=== PATIENT | female | born 1950 | race Two or more races ===

== ENCOUNTER 2017-11-09 21:53 | Emergency (ER) | payer MEDICARE, MEDICAID ==
[2017-11-09] MEDS ORDERED: HYDROCODONE/ACETAMINOPHEN 5-325 MG TABLET PO ONE (22:56)
--- NOTE | 2017-11-09 22:57 | ER Document Report ---
ED General - General Chief Complaint: Chest Pain Stated Complaint: CHEST PAIN Time Seen by Provider: 11/09/17 22:50 Notes: Patient is a 67-year-old female comes emergency department for chief complaint of 2 days of worsening congestion, cough, and she states she is starting to get soreness around the sides of her ribs when she coughs. She states she felt like she had a fever earlier but she is not sure. She denies vomiting, shortness of breath, dizziness. She takes metformin and glipizide for diabetes , she denies any other medical history. She is a former smoker, denies asthma or COPD, denies frequent bronchitis or lung infections. She denies any cardiovascular history. TRAVEL OUTSIDE OF THE [place] IN LAST 30 DAYS: No - Related Data Allergies/Adverse Reactions: aspirin [Aspirin] Adverse Reaction (Verified 05/19/15 16:46) Past Medical History - General Information source: Patient - Social History Smoking Status: Former Smoker Frequency of alcohol use: None Drug Abuse: None Lives with: Family Family History: Reviewed & Not Pertinent - Past Medical History Cardiac Medical History: Reports: Hx Hypercholesterolemia Denies: Hx Coronary Artery Disease, Hx Heart Attack, Hx Hypertension Pulmonary Medical History: Reports: Hx Bronchitis Denies: Hx Asthma, Hx COPD, Hx Pneumonia, Hx Tuberculosis Neurological Medical History: Denies: Hx Cerebrovascular Accident, Hx Seizures Endocrine Medical History: Reports: Hx Diabetes Mellitus Type 2 GI Medical History: Reports: Hx Gastroesophageal Reflux Disease, Hx Ulcer Musculoskeltal Medical History: Reports Hx Arthritis Psychiatric Medical History: Reports: Hx Depression Past Surgical History: Reports: Hx Section, Hx Tonsillectomy, Hx Tubal Ligation. Denies: Hx Hysterectomy, Hx Pacemaker - Immunizations Hx Diphtheria, Pertussis, Tetanus Vaccination: Yes - UTD Hx Pneumococcal Vaccination: 07/21/14 Review of Systems - Review of Systems Constitutional: No symptoms reported EENT: No symptoms reported Cardiovascular: No symptoms reported Respiratory: See HPI Gastrointestinal: No symptoms reported Genitourinary: No symptoms reported Female Genitourinary: No symptoms reported Musculoskeletal: See HPI Skin: No symptoms reported Hematologic/Lymphatic: No symptoms reported Neurological/Psychological: No symptoms reported Physical Exam - Vital signs Vitals: Temp Pulse Resp BP Pulse Ox 98.5 F 98 18 153/77 H 98 11/09/17 22:06 11/09/17 22:06 11/09/17 22:06 11/09/17 22:06 11/09/17 22:06 Interpretation: Normal - General General appearance: Alert, Other - Patient with frequent painful looking coughing episodes - HEENT Head: Normocephalic, Atraumatic Eyes: Normal Conjunctiva: Normal Extraocular movements intact: Yes Eyelashes: Normal Pupils: PERRL Mouth/Lips: Normal Mucous membranes: Normal Pharynx: Normal Neck: Normal - Respiratory Respiratory status: No: Respiratory distress, Labored, Tachypnea Chest status: Tender - Mild tenderness generally over the anterior and posterior ribs Breath sounds: Nonproductive cough. No: Decreased air movement, Rales, Rhonchi , Stridor, Wheezing Chest palpation: Normal - Cardiovascular Rhythm: Regular. No: Tachycardia Heart sounds: Normal auscultation, S1 appreciated, S2 appreciated Murmur: No - Abdominal Inspection: Normal Distension: No distension Bowel sounds: Normal Tenderness: Nontender Organomegaly: No organomegaly - Back Back: Normal, Nontender - Extremities General upper extremity: Normal inspection, Nontender, Normal color, Normal ROM , Normal temperature General lower extremity: Normal inspection, Nontender, Normal color, Normal ROM , Normal temperature, Normal weight bearing. No: Moustapha's sign - Neurological Neuro grossly intact: Yes Cognition: Normal Orientation: AAOx4 [place] Coma Scale Eye Opening: Spontaneous [place] Coma Scale Verbal: Oriented [place] Coma Scale Motor: Obeys Commands [place] Coma Scale Total: 15 Speech: Normal Motor strength normal: LUE, RUE, LLE, RLE Sensory: Normal - Psychological Associated symptoms: Normal affect, Normal mood - Skin Skin Temperature: Warm Skin Moisture: Dry Skin Color: Normal Course - Re-evaluation Re-evalutation: Patient with a nearly nonstop painful cough on my examination. A few coarse breath sounds but otherwise clear lung auscultation with no wheezing, rhonchi, or rales. Patient is able to speak between coughing episodes in full sentences , she does not have tachypnea, no hypoxia, no tachycardia or hypotension. No fever. Chest x-ray unremarkable. Patient given a [place] tablet because of her symptoms. On reevaluation she has stopped coughing, she is resting, she expresses gratefulness. She has sinus tenderness, congestion, cough. Patient will be treated for sinusitis and covered for pneumonia with doxycycline, I did provide her with some symptom management, discussed these in detail, discussed follow-up, discussed return precautions in detail. Patient stating she is ready to go home, states understanding and agreement. - Vital Signs Vital signs: Temp Pulse Resp BP Pulse Ox 98.5 F 88 18 147/75 H 95 11/09/17 22:06 11/10/17 01:18 11/10/17 01:18 11/10/17 01:18 11/10/17 01:18 Discharge - Discharge Clinical Impression: Cough, Rib pain Sinusitis Qualifiers: Sinusitis location: unspecified location Chronicity: acute Recurrence: not specified as recurrent Qualified Code(s): J01.90 - Acute sinusitis, unspecified Condition: Stable Disposition: HOME, SELF-CARE Additional Instructions: Your chest x-ray does not show any concerning abnormalities. Your examination is consistent with sinusitis and bronchitis. Take the antibiotic as prescribed , take [id number] remedies, only take the pain medication given if needed for cough and sleep. If you do take it also take the Colace to avoid constipation. Follow-up with your primary care provider. Return for any concerning or worsening symptoms including spiking fever, difficulty breathing, or any other concerning symptoms. Prescriptions: Docusate Sodium [Colace 100 mg Capsule] 100 mg PO ASDIR PRN #30 capsule PRN Reason: Doxycycline Hyclate 100 mg PO BID #14 capsule Hydrocodone/Acetaminophen [[place] 5-325 mg Tablet] 1 tab PO ASDIR #6 tablet Referrals: ROHAN ROPER PA-C [Primary Care Provider] - Follow up as needed
--- NOTE | 2017-11-10 01:00 | RADIOLOGY REPORT (SQ) ---
EXAM DESCRIPTION: CHEST PA/LAT CLINICAL HISTORY: 67 years, Female, persistent cough COMPARISON: 8.19.15 LIMITATIONS: None. FINDINGS: Prominent interstitium, normal cardiac silhouette, and intact bony thorax. IMPRESSION: No acute cardiopulmonary findings. 2011 [employer]- All Rights Reserved
[2017-11-10] MEDS ORDERED: HYDROCODONE/ACETAMINOPHEN 5-325 MG 6 TAB/DSPK PO PRN (01:04)
[2017-11-10] MEDS ORDERED: DOXYCYCLINE HYCLATE 100 MG TABLET PO ONE (01:04)
[2017-11-10 01:19] VITALS: BP 147/75
--- NOTE | 2017-11-10 07:51 | EKG REPORT ---
SEVERITY:- NORMAL ECG - SINUS RHYTHM : Confirmed by: Sherman Jane MD 10-Nov-2017 07:51:01
== END 2017-11-10 01:18 | disposition home or self-care (01) ==
LOC: ER 21:53
DX: R07.81 Pleurodynia (principal); R05 Cough; J01.90 Acute sinusitis, unspecified; E11.9 Type 2 diabetes mellitus without complications; Z79.84 Long term (current) use of oral hypoglycemic drugs; Z87.891 Personal history of nicotine dependence
CPT/HCPCS: 93005; 99285; 71020; 93010; A9270 ×3

== ENCOUNTER 2019-02-17 13:13 | Inpatient (IN) | payer MEDICARE, MEDICAID ==
--- NOTE | 2019-02-17 13:34 | ER Document Report ---
ED Medical Screen (RME) - General Chief Complaint: Dizziness Stated Complaint: DIZZY Time Seen by Provider: 02/17/19 13:33 Primary Care Provider: ROHAN ROPER PA-C [Primary Care Provider] - Follow up as needed Mode of Arrival: Wheelchair Information source: Patient, Relative TRAVEL OUTSIDE OF THE [place] IN LAST 30 DAYS: No - HPI Patient complains to provider of: dizzy, shaking Onset: Yesterday - pt with 1 day h/o dizziness, shaking and weakness. Denies CP - Related Data Allergies/Adverse Reactions: aspirin [Aspirin] Adverse Reaction (Verified 05/19/15 16:46) Past Medical History - Past Medical History Cardiac Medical History: Reports: Hx Hypercholesterolemia Denies: Hx Coronary Artery Disease, Hx Heart Attack, Hx Hypertension Pulmonary Medical History: Reports: Hx Bronchitis Denies: Hx Asthma, Hx COPD, Hx Pneumonia, Hx Tuberculosis Neurological Medical History: Denies: Hx Cerebrovascular Accident, Hx Seizures Endocrine Medical History: Reports: Hx Diabetes Mellitus Type 2 Renal/ Medical History: Denies: Hx Peritoneal Dialysis GI Medical History: Reports: Hx Gastroesophageal Reflux Disease, Hx Ulcer Musculoskeltal Medical History: Reports Hx Arthritis Psychiatric Medical History: Reports: Hx Depression Past Surgical History: Reports: Hx Section, Hx Tonsillectomy, Hx Tubal Ligation. Denies: Hx Hysterectomy, Hx Pacemaker - Immunizations Hx Diphtheria, Pertussis, Tetanus Vaccination: Yes - UTD Physical Exam - Vital signs Vitals: Temp Pulse Resp BP Pulse Ox 97.4 F 117 H 16 117/55 L 98 02/17/19 13:20 02/17/19 13:20 02/17/19 13:20 02/17/19 13:20 02/17/19 13:20 Course - Vital Signs Vital signs: Temp Pulse Resp BP Pulse Ox 97.4 F 117 H 16 117/55 L 98 02/17/19 13:20 02/17/19 13:20 02/17/19 13:20 02/17/19 13:20 02/17/19 13:20 Doctor's Discharge - Discharge Referrals: ROHAN ROPER PA-C [Primary Care Provider] - Follow up as needed
[2019-02-17 14:32] LABS: APPEARANCE,URINE SLIGHTLY-CLOUDY; BILIRUBIN,URINE NEGATIVE (NEGATIVE); COLOR,URINE YELLOW; GLUCOSE, URINE >=500 mg/dL (NEGATIVE); KETONES,URINE NEGATIVE (NEGATIVE); LEUKOCYTE ESTERASE,URINE NEGATIVE (NEGATIVE); NITRITE,URINE NEGATIVE (NEGATIVE); PROTEIN,URINE NEGATIVE (NEGATIVE); UROBILINOGEN,URINE NEGATIVE mg/dL (<2.0)
[2019-02-17 14:37] LABS: ABSOLUTE BASOPHILS # (AUTO) 0.1 10^3/uL (0.0-0.2); ABSOLUTE EOSINOPHILS # (AUTO) 0.1 10^3/uL (0.0-0.6); ABSOLUTE LYMPHOCYTES (AUTO) 2.5 10^3/uL (0.5-4.7); ABSOLUTE MONOCYTES (AUTO) 0.5 10^3/uL (0.1-1.4); ABSOLUTE NEUT (AUTO) 5.5 10^3/uL (1.7-8.2); EOSINOPHILS % (AUTO) 0.6 % (0-6); HEMATOCRIT 20.8 % (36.0-47.0); MEAN CORPUSCULAR HEMOGLOBIN 30.6 pg (27.0-33.4); MEAN CORPUSCULAR HGB CONC 33.8 g/dL (32.0-36.0); MEAN CORPUSCULAR VOLUME 91 fl (80-97); MONOCYTES % (AUTO) 5.4 % (3-13); PLATELET COUNT 317 10^3/uL (150-450); RED BLOOD COUNT 2.29 10^6/uL (3.72-5.28); RED CELL DISTRIBUTION WIDTH 12.8 % (11.5-14.0); TOTAL CELLS COUNTED % (AUTO) 100 %; WHITE BLOOD COUNT 8.6 10^3/uL (4.0-10.5)
[2019-02-17 14:42] LABS: ALANINE AMINOTRANSFERASE 28 U/L (9-52); ALBUMIN 3.5 g/dL (3.5-5.0); ALKALINE PHOSPHATASE 67 U/L (38-126); ANION GAP 11 (5-19); ASPARTATE AMINO TRANSFERASE 27 U/L (14-36); BILIRUBIN,DIRECT 0.2 mg/dL (0.0-0.4); BILIRUBIN,TOTAL 0.2 mg/dL (0.2-1.3); BLOOD UREA NITROGEN 34 mg/dL (7-20); CALCIUM 9.5 mg/dL (8.4-10.2); CARBON DIOXIDE 25 mmol/L (22-30); CHLORIDE 102 mmol/L (98-107); CREATINE KINASE 59 U/L (30-135); GLUCOSE 250 mg/dL (75-110); POTASSIUM 4.3 mmol/L (3.6-5.0); SODIUM 137.6 mmol/L (137-145); TOTAL PROTEIN 6.2 g/dL (6.3-8.2)
[2019-02-17 14:53] LABS: CREATINE KINASE MB 0.65 ng/mL (<4.55)
[2019-02-17 14:56] LABS: TROPONIN I < 0.012 ng/mL
[2019-02-17] MEDS ORDERED: NORMAL SALINE 250 ML IV PRN (16:36)
[2019-02-17] MEDS ORDERED: PANTOPRAZOLE SODIUM 40 MG VIAL IV ONE (16:52)
[2019-02-17] MEDS ORDERED: PANTOPRAZOLE SODIUM 40 MG VIAL IV PRN (16:52)
[2019-02-17 17:04] LABS: INTERNATIONAL RATION (INR) 0.91; PROTHROMBIN TIME 12.7 SEC (11.4-15.4)
[2019-02-17 17:05] LABS: PARTIAL THROMBOPLASTIN TIME 25.4 SEC (23.5-35.8)
--- NOTE | 2019-02-17 17:31 | ER Document Report ---
Entered by ARVIND DIEGO SCRIBE 02/17/19 [id number] Acting as scribe for:JM BELLO DO ED General - General Chief Complaint: Dizziness Stated Complaint: DIZZY Time Seen by Provider: 02/17/19 13:33 Mode of Arrival: Wheelchair Information source: Patient Notes: 68-year-old female who presents to the emergency department today with complaints of being awoken from sleep this morning with her "heart racing and pounding heart". Patient states she felt like her "heart was going to come out of her ear. Patient states that she had associated shakiness, dizziness, and ge neralized weakness during this. Patient states her symptoms somewhat subsided so she dropped her grandson off at work and then went to pentecostalism. Patient reports that at pentecostalism her symptoms began again so she called her daughter to come pick her up and bring her here to be evaluated. Patient does mention that noticed black stool today. Patient states that she did take x6 ibuprofen two days ago for lower back pain. Patient denies any vision changes, chest pain, shortness of breath, abdominal pain, nausea, vomiting, or diarrhea. TRAVEL OUTSIDE OF THE [place] IN LAST 30 DAYS: No - Related Data Allergies/Adverse Reactions: aspirin [Aspirin] Adverse Reaction (Verified 05/19/15 16:46) Past Medical History - General Information source: Patient, Relative - Social History Smoking Status: Former Smoker Cigarette use (# per day): No Frequency of alcohol use: None Drug Abuse: None Lives with: Family Family History: Reviewed & Not Pertinent Patient has suicidal ideation: No Patient has homicidal ideation: No - Past Medical History Cardiac Medical History: Reports: Hx Hypercholesterolemia Pulmonary Medical History: Reports: Hx Bronchitis Endocrine Medical History: Reports: Hx Diabetes Mellitus Type 2 GI Medical History: Reports: Hx Gastroesophageal Reflux Disease, Hx Ulcer Musculoskeletal Medical History: Reports Hx Arthritis Psychiatric Medical History: Reports: Hx Depression Past Surgical History: Reports: Hx Section, Hx Tonsillectomy, Hx Tubal Ligation - Immunizations Hx Diphtheria, Pertussis, Tetanus Vaccination: Yes - UTD Hx Pneumococcal Vaccination: 07/21/14 Review of Systems - Review of Systems Constitutional: See HPI, Weakness EENT: denies: Blurred vision, Double vision Cardiovascular: See HPI, Palpitations, Heart racing, Dizziness, Lightheaded. denies: Chest pain Respiratory: denies: Short of breath Gastrointestinal: See HPI, Black stools. denies: Abdominal pain, Diarrhea, Nausea, Vomiting Genitourinary: No symptoms reported Female Genitourinary: No symptoms reported Musculoskeletal: No symptoms reported Skin: No symptoms reported Hematologic/Lymphatic: No symptoms reported Neurological/Psychological: No symptoms reported -: Yes All other systems reviewed and negative Physical Exam - Vital signs Vitals: Temp Pulse Resp BP Pulse Ox 97.4 F 117 H 16 117/55 L 98 02/17/19 13:20 02/17/19 13:20 02/17/19 13:20 02/17/19 13:20 02/17/19 13:20 - Notes Notes: PHYSICAL EXAM GENERAL: Alert, interacts well. No acute distress. HEAD: Normocephalic, atraumatic. EYES: Pupils equal, round, and reactive to light. Extraocular movements intact. ENT: Oral mucosa moist, tongue midline. NECK: Full range of motion. Supple. Trachea midline. LUNGS: Clear to auscultation bilaterally, no wheezes, rales, or rhonchi. No respiratory distress. HEART: Regular rhythm, tachycardic. No murmurs, gallops, or rubs. ABDOMEN: Soft, non-tender. Non-distended. Bowel sounds present in all 4 quadrants. No guarding, rigidity, or rebound. RECTAL: Performed with female PCT in attendance. Dark black melanotic stool. Heme positive on [id number] Hemoccult. No hemorrhoids. EXTREMITIES: Moves all 4 extremities spontaneously. No edema, radial and dorsalis pedis pulses 2/4 bilaterally. No cyanosis. NEUROLOGICAL: Alert and oriented x3. Normal speech. PSYCH: Normal affect, normal mood. SKIN: Warm, dry, normal turgor. No rashes or lesions noted. Course - Re-evaluation Re-evalutation: 02/17/19 16:57 CBC shows anemia with hemoglobin of 7.0, CMP shows elevated BUN at 34 elevated glucose at 258, negative cardiac enzymes, urinalysis shows glucose but no other acute findings. Patient's presentation is consistent with upper GI bleed. I have ordered 2 units of blood I have also ordered Protonix drip and bolus. Given the patient's overuse of Motrin, the acuity of her symptoms and her history of bleeding ulcer in the past I do suspect the patient has another bleeding ulcer, I discussed the case with Dr. Borges who agrees to admit the kirt ent, wants me to consult surgery and make sure they are on board as well for a GI bleed, he is going to decide on the type of bed that he wants after he examines the patient. Admission is on hold until he decides level of care that he wants. I attempted to call the surgicalist but the line is busy. I will reattempt a call in another 10 minutes. 02/17/19 17:13 Dr. Gonzalez is aware of the consult. No further orders. 02/17/19 17:31 Dr. Borges would like the patient to be in admission to the [facility]. 02/17/19 22:43 - Vital Signs Vital signs: Temp Pulse Resp BP Pulse Ox 98.9 F 92 15 117/96 H 98 02/17/19 21:42 02/17/19 21:01 02/17/19 22:01 02/17/19 22:01 02/17/19 22:01 - Laboratory Result Diagrams: 02/17/19 13:40 02/17/19 13:40 Laboratory results interpreted by me: 02/17/19 02/17/19 02/17/19 13:40 13:40 13:40 RBC 2.29 L Hgb 7.0 L Hct 20.8 L BUN 34 H Glucose 250 H Total Protein 6.2 L Urine Glucose (UA) >=500 H Crossmatch 02/17/19 16:50 RBC Hgb Hct BUN Glucose Total Protein Urine Glucose (UA) Crossmatch See Detail Critical Care Note - Critical Care Note Total time excluding time spent on procedures (mins): 40 Discharge - Discharge Clinical Impression: UGI bleed, Acute blood loss anemia Condition: Fair Disposition: ADMITTED INPATIENT Admitting Provider: Alyse BORGES Unit Admitted: [facility] I personally performed the services described in the documentation, reviewed and edited the documentation which was dictated to the scribe in my presence, and it accurately records my words and actions.
[2019-02-17] MEDS ORDERED: GLUCAGON,HUMAN RECOMB 1 MG INJ IM PRN (18:05)
[2019-02-17] MEDS ORDERED: DEXTROSE 50%-WATER 25 GM/50 ML DISP.SYRIN IV PRN ×4 (18:05)
[2019-02-17] MEDS ORDERED: DEXTROSE 40% GEL 15 GM TUBE PO PRN ×4 (18:05)
[2019-02-17] MEDS ORDERED: GLUCAGON,HUMAN RECOMB 1 MG INJ SUBCUT PRN (18:05)
[2019-02-17] MEDS ORDERED: PANTOPRAZOLE SODIUM 40 MG VIAL IV SCH (18:15)
--- NOTE | 2019-02-17 18:32 | PDOC H&P ---
History of Present Illness Admission Date/PCP: 02/17/19 17:40 ROHAN ROPER PA-C Patient complains of: melena History of Present Illness: ANGELIUQE WHEELER is a 68 year old female with a PMH of DM 2, chronic back pain, and known duodenal ulcer (see EGD in 2015) who presented with dizziness and melena. Patient says he has been having worsening of his chronic low back pain and has been taking ibuprofen up to 6 tablets/day in the past few days. She says she knows she has an ulcer and was told not to take NSAIDs but due to worsening pain had to take more ibuprofen. She has been having black tarry stools in the past 2 days, 4 episodes/day. She denies vomiting or hematemesis. Denies abdominal pain. She woke up this morning feeling dizzy, light headed and was having palpitations. She was found to have a Hb of 7.0 in the ER with the last previous baseline of [address] back in 2015. Past Medical History Cardiac Medical History: Reports: Hyperlipidema Denies: Coronary Artery Disease, Myocardial Infarction, Hypertension Pulmonary Medical History: Reports: Bronchitis Denies: Asthma, Chronic Obstructive Pulmonary Disease (COPD), Pneumonia, Tuberculosis Neurological Medical History: Denies: Seizures Endocrine Medical History: Reports: Diabetes Mellitus Type 2 GI Medical History: Reports: Gastroesophageal Reflux Disease Musculoskeltal Medical History: Reports: Arthritis Psychiatric Medical History: Reports: Depression Hematology: Denies: Anemia Past Surgical History Past Surgical History: Reports: Section, Tonsillectomy, Tubal Ligation Denies: Hysterectomy, Pacemaker Social History Lives with: Family Smoking Status: Former Smoker Frequency of Alcohol Use: None Hx Recreational Drug Use: No Hx Prescription Drug Abuse: No Family History Family History: Reviewed & Not Pertinent Parental Family History Reviewed: Yes - no premature CAD Children Family History Reviewed: No Sibling(s) Family History Reviewed.: No Medication/Allergy Home Medications: Glipizide 5 mg PO DAILY 09/16/11 Metformin HCl [Glucophage 1000 mg Tablet] 500 mg PO BID 09/16/11 Sulfamethoxazole/Trimethoprim [Bactrim Ds Tablet] 1 each PO BID #14 tablet 09/13/14 Atorvastatin Calcium [Lipitor 10 mg Tablet] 10 mg PO QHS #0 tablet 07/08/15 Clopidogrel Bisulfate [Plavix 75 mg Tablet] 75 mg PO DAILY #0 tablet 07/08/15 Lisinopril [Prinivil 5 mg Tablet] 2.5 mg PO DAILY #0 tablet 07/08/15 Metformin HCl [Glucophage 500 mg Tablet] 500 mg PO BIDACBS #0 tablet 07/08/15 Oxycodone HCl/Acetaminophen [Percocet 5-325 mg Tablet] 1 tab PO ASDIR PRN #15 tablet 08/05/16 Docusate Sodium [Colace 100 mg Capsule] 100 mg PO ASDIR PRN #30 capsule 11/10/17 Doxycycline Hyclate 100 mg PO BID #14 capsule 11/10/17 Hydrocodone/Acetaminophen [[place] 5-325 mg Tablet] 1 tab PO ASDIR #6 tablet 11/10/17 Allergies/Adverse Reactions: aspirin [Aspirin] Adverse Reaction (Verified 05/19/15 16:46) Review of Systems All systems: reviewed and no additional remarkable complaints except as stated - as mentioned in HPI Physical Exam Vital Signs: Temp Pulse Resp BP Pulse Ox 97.4 F 117 H 21 H 106/55 L 100 02/17/19 13:20 02/17/19 13:20 02/17/19 17:01 02/17/19 17:01 02/17/19 17:01 Intake & Output 02/16/19 02/17/19 02/18/19 06:59 06:59 06:59 Weight 175 lb 4.28 oz General appearance: PRESENT: no acute distress, well-developed, well-nourished Head exam: PRESENT: atraumatic, normocephalic Eye exam: PRESENT: conjunctiva pink, EOMI, PERRLA. ABSENT: scleral icterus Ear exam: PRESENT: normal external ear exam Mouth exam: PRESENT: moist, tongue midline Neck exam: ABSENT: carotid bruit, JVD, lymphadenopathy, thyromegaly Respiratory exam: PRESENT: clear to auscultation alejandra. ABSENT: rales, rhonchi, wheezes Cardiovascular exam: PRESENT: RRR. ABSENT: diastolic murmur, rubs, systolic murmur Pulses: PRESENT: normal dorsalis pedis pul GI/Abdominal exam: PRESENT: normal bowel sounds, soft. ABSENT: distended, guarding, mass, organolmegaly, rebound, tenderness Rectal exam: PRESENT: deferred Neurological exam: PRESENT: alert, awake, oriented to person, oriented to place, oriented to time, oriented to situation, CN II-XII grossly intact. ABSENT: motor sensory deficit Results Laboratory Results: 02/17/19 13:40 02/17/19 13:40 02/17/19 02/17/19 02/17/19 13:40 13:40 13:40 WBC 8.6 RBC 2.29 L Hgb 7.0 L Hct 20.8 L MCV 91 MCH 30.6 MCHC 33.8 RDW 12.8 Plt Count 317 Seg Neutrophils % 64.0 Lymphocytes % 29.0 Monocytes % 5.4 Eosinophils % 0.6 Basophils % 1.0 Absolute Neutrophils 5.5 Absolute Lymphocytes 2.5 Absolute Monocytes 0.5 Absolute Eosinophils 0.1 Absolute Basophils 0.1 Sodium 137.6 Potassium 4.3 Chloride 102 Carbon Dioxide 25 Anion Gap 11 BUN 34 H Creatinine 0.80 Est GFR ( Amer) > 60 Est GFR (Non-Af Amer) > 60 Glucose 250 H Calcium 9.5 Total Bilirubin 0.2 AST 27 ALT 28 Alkaline Phosphatase 67 Total Protein 6.2 L Albumin 3.5 Urine Color YELLOW Urine Appearance SLIGHTLY-CLOUDY Urine pH 5.0 Ur Specific [place] 1.020 Urine Protein NEGATIVE Urine Glucose (UA) >=500 H Urine Ketones NEGATIVE Urine Blood NEGATIVE Urine Nitrite NEGATIVE Ur Leukocyte Esterase NEGATIVE Urine WBC (Auto) 2 Urine RBC (Auto) 1 Blood Type Antibody Screen 02/17/19 16:50 WBC RBC Hgb Hct MCV MCH MCHC RDW Plt Count Seg Neutrophils % Lymphocytes % Monocytes % Eosinophils % Basophils % Absolute Neutrophils Absolute Lymphocytes Absolute Monocytes Absolute Eosinophils Absolute Basophils Sodium Potassium Chloride Carbon Dioxide Anion Gap BUN Creatinine Est GFR ( Amer) Est GFR (Non-Af Amer) Glucose Calcium Total Bilirubin AST ALT Alkaline Phosphatase Total Protein Albumin Urine Color Urine Appearance Urine pH Ur Specific [place] Urine Protein Urine Glucose (UA) Urine Ketones Urine Blood Urine Nitrite Ur Leukocyte Esterase Urine WBC (Auto) Urine RBC (Auto) Blood Type O POSITIVE Antibody Screen NEGATIVE 02/17/19 02/17/19 13:40 13:40 Creatine Kinase 59 CK-MB (CK-2) 0.65 Troponin I < 0.012 Assessment and Plan - Diagnosis (1) Upper GI bleed Is this a current diagnosis for this admission?: Yes Plan: Continue Protonix drip. Surgery consult for EGD. Will be kept NPO. 2 units of pRBCs have been ordered in the ER. Will continue IV fluids. (2) Acute blood loss anemia Is this a current diagnosis for this admission?: Yes Plan: 2 units of pRBCs have been ordered in the ER. Will cycle H&H. (3) Diabetes mellitus, type 2 Is this a current diagnosis for this admission?: Yes Plan: Acclencho JOHNSON with SSI.
--- NOTE | 2019-02-17 18:59 | ADVANCED CARE ---
- Diagnosis (1) Upper GI bleed Diagnosis Current: Yes (2) Acute blood loss anemia Diagnosis Current: Yes (3) Diabetes mellitus, type 2 Diagnosis Current: Yes Resuscitation Status: Full Code Discussion: Discussed with patient and her daughter/DPOA who both expressed she wants full resuscitation including chest compressions, defibrillation and mechanical intubation if the need arise.
--- NOTE | 2019-02-17 20:13 | EKG REPORT ---
SEVERITY:- OTHERWISE NORMAL ECG - SINUS TACHYCARDIA : Confirmed by: Faith Weller MD 17-Feb-2019 20:12:34
[2019-02-17] MEDS: INSULIN LISPRO 100 UNIT/ML 3 ML VIAL SUBCUT SCH (23:36)
[2019-02-17] MEDS: NORMAL SALINE 1000 ML 1,000 ML IV PRN (23:53)
[2019-02-18 01:52] LABS: HEMATOCRIT 22.8 % (36.0-47.0); MEAN CORPUSCULAR HEMOGLOBIN 30.2 pg (27.0-33.4); MEAN CORPUSCULAR HGB CONC 35.2 g/dL (32.0-36.0); PLATELET COUNT 258 10^3/uL (150-450); RED BLOOD COUNT 2.65 10^6/uL (3.72-5.28); RED CELL DISTRIBUTION WIDTH 14.7 % (11.5-14.0); WHITE BLOOD COUNT 9.4 10^3/uL (4.0-10.5)
[2019-02-18 01:53] LABS: MEAN CORPUSCULAR VOLUME 86 fl (80-97)
[2019-02-18] MEDS ORDERED: PANTOPRAZOLE SODIUM 40 MG VIAL IV PRN (04:30)
--- NOTE | 2019-02-18 06:17 | PDOC CONSULTATION ---
Consultation Consult Date: 02/18/19 Consult reason:: GI bleeding History of Present Illness Admission Date/PCP: 02/17/19 17:40 ROHAN ROPER PA-C Patient complains of: Anemia, weakness, fatigue, melena History of Present Illness: ANGELIQUE WHEELER is a 68 year old female seen in consultation at the request of the hospitalist service. This patient reports a several week history of melanotic stool. It is black, sticky, and loose. The patient has a history of peptic ulcer disease in the past. She denies hematemesis or hematochezia. She does report gnawing, constant abdominal pain. The patient has been taking increasing amounts of ibuprofen over the last several weeks. Patient was seen in the emergency department where she was found to have severe anemia. She was admitted for further workup. The patient denies chest pain, headache, shortness of breath, blurry vision, difficulty hearing, sore throat. She does report fatigue and malaise. Past Medical History Cardiac Medical History: Reports: Hyperlipidema Denies: Coronary Artery Disease, Myocardial Infarction, Hypertension Pulmonary Medical History: Reports: Bronchitis Denies: Asthma, Chronic Obstructive Pulmonary Disease (COPD), Pneumonia, Tuberculosis Neurological Medical History: Denies: Seizures Endocrine Medical History: Reports: Diabetes Mellitus Type 2 GI Medical History: Reports: Gastroesophageal Reflux Disease Musculoskeltal Medical History: Reports: Arthritis Psychiatric Medical History: Reports: Depression Hematology: Denies: Anemia Past Surgical History Past Surgical History: Reports: Section, Tonsillectomy, Tubal Ligation, Other - EGD where gastric ulcers were identified. Denies: Hysterectomy, Pacemaker Social History Lives with: Family Smoking Status: Former Smoker Last Time Smoked: 1988 Frequency of Alcohol Use: None Hx Recreational Drug Use: No Drugs: None Hx Prescription Drug Abuse: No - Advance Directive Resuscitation Status: Full Code Family History Family History: Reviewed & Not Pertinent Parental Family History Reviewed: Yes Children Family History Reviewed: Yes Sibling(s) Family History Reviewed.: Yes Medication/Allergy Home Medications: Glipizide 5 mg PO DAILY 09/16/11 Metformin HCl [Glucophage 1000 mg Tablet] 500 mg PO BID 09/16/11 Sulfamethoxazole/Trimethoprim [Bactrim Ds Tablet] 1 each PO BID #14 tablet 09/13/14 Atorvastatin Calcium [Lipitor 10 mg Tablet] 10 mg PO QHS #0 tablet 07/08/15 Clopidogrel Bisulfate [Plavix 75 mg Tablet] 75 mg PO DAILY #0 tablet 07/08/15 Lisinopril [Prinivil 5 mg Tablet] 2.5 mg PO DAILY #0 tablet 07/08/15 Metformin HCl [Glucophage 500 mg Tablet] 500 mg PO BIDACBS #0 tablet 07/08/15 Oxycodone HCl/Acetaminophen [Percocet 5-325 mg Tablet] 1 tab PO ASDIR PRN #15 tablet 08/05/16 Docusate Sodium [Colace 100 mg Capsule] 100 mg PO ASDIR PRN #30 capsule 11/10/17 Doxycycline Hyclate 100 mg PO BID #14 capsule 11/10/17 Hydrocodone/Acetaminophen [[place] 5-325 mg Tablet] 1 tab PO ASDIR #6 tablet 11/10/17 Allergies/Adverse Reactions: aspirin [Aspirin] Adverse Reaction (Verified 05/19/15 16:46) Review of Systems Constitutional: PRESENT: fatigue, weakness. ABSENT: anorexia, chills, fever(s), headache(s) Eyes: ABSENT: visual disturbances Ears: ABSENT: hearing changes Nose, Mouth, and Throat: ABSENT: sore throat Cardiovascular: ABSENT: chest pain, dyspnea on exertion Respiratory: ABSENT: cough, dyspnea Gastrointestinal: PRESENT: abdominal pain, melena. ABSENT: hematemesis, hematochezia, nausea, vomiting Genitourinary: ABSENT: dysuria Musculoskeletal: ABSENT: back pain Integumentary: ABSENT: pruritus, rash Neurological: ABSENT: confusion, convulsions, dizziness Psychiatric: ABSENT: anxiety, depression Endocrine: ABSENT: cold intolerance, heat intolerance Hematologic/Lymphatic: ABSENT: easy bleeding, easy bruising Physical Exam Vital Signs: Temp Pulse Resp BP Pulse Ox 98.1 F 91 19 121/55 L 93 02/18/19 03:31 02/18/19 03:31 02/18/19 03:31 02/18/19 03:31 02/18/19 03:31 Intake & Output 02/16/19 02/17/19 02/18/19 06:59 06:59 06:59 Intake Total 600 Balance 600 Weight 78.8 kg General appearance: PRESENT: no acute distress, cooperative Head exam: PRESENT: atraumatic, normocephalic Eye exam: PRESENT: EOMI, PERRLA. ABSENT: scleral icterus Mouth exam: PRESENT: neck supple Teeth exam: ABSENT: poor dentation Neck exam: ABSENT: meningismus, tenderness, thyromegaly, tracheal deviation Respiratory exam: PRESENT: clear to auscultation alejandra, unlabored. ABSENT: chest wall tenderness, retraction, tachypnea, wheezes Cardiovascular exam: PRESENT: RRR Pulses: PRESENT: normal radial pulses Vascular exam: PRESENT: normal capillary refill GI/Abdominal exam: PRESENT: soft. ABSENT: distended, firm, guarding, rigid, tenderness Rectal exam: PRESENT: deferred Extremities exam: ABSENT: clubbing Musculoskeletal exam: ABSENT: deformity Neurological exam: PRESENT: alert, awake, oriented to person, oriented to place, oriented to time, oriented to situation, CN II-XII grossly intact Psychiatric exam: ABSENT: agitated, anxious, depressed Focused psych exam: ABSENT: delusional Skin exam: ABSENT: cyanosis, erythema, jaundice Results Laboratory Results: 02/18/19 01:40 02/17/19 13:40 02/17/19 02/17/19 02/17/19 13:40 13:40 13:40 WBC 8.6 RBC 2.29 L Hgb 7.0 L Hct 20.8 L MCV 91 MCH 30.6 MCHC 33.8 RDW 12.8 Plt Count 317 Seg Neutrophils % 64.0 Lymphocytes % 29.0 Monocytes % 5.4 Eosinophils % 0.6 Basophils % 1.0 Absolute Neutrophils 5.5 Absolute Lymphocytes 2.5 Absolute Monocytes 0.5 Absolute Eosinophils 0.1 Absolute Basophils 0.1 Sodium 137.6 Potassium 4.3 Chloride 102 Carbon Dioxide 25 Anion Gap 11 BUN 34 H Creatinine 0.80 Est GFR ( Amer) > 60 Est GFR (Non-Af Amer) > 60 Glucose 250 H Calcium 9.5 Total Bilirubin 0.2 AST 27 ALT 28 Alkaline Phosphatase 67 Total Protein 6.2 L Albumin 3.5 Urine Color YELLOW Urine Appearance SLIGHTLY-CLOUDY Urine pH 5.0 Ur Specific [place] 1.020 Urine Protein NEGATIVE Urine Glucose (UA) >=500 H Urine Ketones NEGATIVE Urine Blood NEGATIVE Urine Nitrite NEGATIVE Ur Leukocyte Esterase NEGATIVE Urine WBC (Auto) 2 Urine RBC (Auto) 1 Blood Type Antibody Screen 02/17/19 02/18/19 16:50 01:40 WBC 9.4 RBC 2.65 L Hgb 8.0 L Hct 22.8 L MCV 86 D MCH 30.2 MCHC 35.2 RDW 14.7 H Plt Count 258 Seg Neutrophils % Lymphocytes % Monocytes % Eosinophils % Basophils % Absolute Neutrophils Absolute Lymphocytes Absolute Monocytes Absolute Eosinophils Absolute Basophils Sodium Potassium Chloride Carbon Dioxide Anion Gap BUN Creatinine Est GFR ( Amer) Est GFR (Non-Af Amer) Glucose Calcium Total Bilirubin AST ALT Alkaline Phosphatase Total Protein Albumin Urine Color Urine Appearance Urine pH Ur Specific [place] Urine Protein Urine Glucose (UA) Urine Ketones Urine Blood Urine Nitrite Ur Leukocyte Esterase Urine WBC (Auto) Urine RBC (Auto) Blood Type O POSITIVE Antibody Screen NEGATIVE 02/17/19 02/17/19 13:40 13:40 Creatine Kinase 59 CK-MB (CK-2) 0.65 Troponin I < 0.012 Assessment & Plan - Diagnosis (1) GI bleeding Qualifiers: GI bleed type/associated pathology: unspecified gastrointestinal hemorrhage type Qualified Code(s): K92.2 - Gastrointestinal hemorrhage, unspecified Is this a current diagnosis for this admission?: Yes (2) Acute blood loss anemia Is this a current diagnosis for this admission?: Yes - Plan Summary Plan Summary: This is a 68-year-old female with a history of peptic ulcer disease. Recently she has been taking increasing amounts of NSAIDs. The patient presents with melena, anemia, and fatigue. It is likely that she is experiencing acute on chronic upper GI hemorrhage. The patient would likely benefit from an EGD. If the EGD is normal, she may require colonoscopy. This is been discussed with the patient, and she is in agreement with the treatment plan. Risks/benefits discussed, informed consent obtained, and all questions answered.
[2019-02-18 06:36] LABS: ABSOLUTE BASOPHILS # (AUTO) 0.1 10^3/uL (0.0-0.2); ABSOLUTE EOSINOPHILS # (AUTO) 0.1 10^3/uL (0.0-0.6); ABSOLUTE LYMPHOCYTES (AUTO) 2.5 10^3/uL (0.5-4.7); ABSOLUTE MONOCYTES (AUTO) 0.6 10^3/uL (0.1-1.4); ABSOLUTE NEUT (AUTO) 4.9 10^3/uL (1.7-8.2); EOSINOPHILS % (AUTO) 1.6 % (0-6); HEMATOCRIT 22.5 % (36.0-47.0); MEAN CORPUSCULAR HEMOGLOBIN 30.2 pg (27.0-33.4); MEAN CORPUSCULAR HGB CONC 35.1 g/dL (32.0-36.0); MEAN CORPUSCULAR VOLUME 86 fl (80-97); MONOCYTES % (AUTO) 7.1 % (3-13); PLATELET COUNT 248 10^3/uL (150-450); RED BLOOD COUNT 2.62 10^6/uL (3.72-5.28); RED CELL DISTRIBUTION WIDTH 14.9 % (11.5-14.0); SEGMENTED NEUTROPHILS % (AUTO) 60.3 % (42-78); TOTAL CELLS COUNTED % (AUTO) 100 %; WHITE BLOOD COUNT 8.2 10^3/uL (4.0-10.5)
[2019-02-18 06:41] LABS: HEMOGLOBIN 7.9 g/dL (12.0-15.5)
[2019-02-18 06:52] LABS: BLOOD UREA NITROGEN 26 mg/dL (7-20); CALCIUM 8.9 mg/dL (8.4-10.2); GLUCOSE 176 mg/dL (75-110); POTASSIUM 3.8 mmol/L (3.6-5.0)
[2019-02-18 07:05] LABS: CARBON DIOXIDE 24 mmol/L (22-30); CHLORIDE 107 mmol/L (98-107); SODIUM 135.7 mmol/L (137-145)
[2019-02-18 07:09] LABS: ANION GAP 5 (5-19)
[2019-02-18] MEDS: INSULIN LISPRO 100 UNIT/ML 3 ML VIAL SUBCUT SCH ×4 (09:54→22:16)
[2019-02-18] MEDS: NORMAL SALINE 1000 ML 1,000 ML IV PRN (09:55)
[2019-02-18] MEDS ORDERED: INSULIN LISPRO 100 UNIT/ML 3 ML VIAL SUBCUT ONE (13:00)
[2019-02-18 13:19] LABS: ABSOLUTE EOSINOPHILS # (AUTO) 0.1 10^3/uL (0.0-0.6); ABSOLUTE LYMPHOCYTES (AUTO) 2.5 10^3/uL (0.5-4.7); ABSOLUTE MONOCYTES (AUTO) 0.4 10^3/uL (0.1-1.4); ABSOLUTE NEUT (AUTO) 4.1 10^3/uL (1.7-8.2); BASOPHILS % (AUTO) 0.6 % (0-2); HEMATOCRIT 20.2 % (36.0-47.0); LYMPHOCYTES % (AUTO) 35.2 % (13-45); MEAN CORPUSCULAR HEMOGLOBIN 30.5 pg (27.0-33.4); MEAN CORPUSCULAR HGB CONC 35.5 g/dL (32.0-36.0); MEAN CORPUSCULAR VOLUME 86 fl (80-97); MONOCYTES % (AUTO) 5.8 % (3-13); PLATELET COUNT 254 10^3/uL (150-450); RED BLOOD COUNT 2.35 10^6/uL (3.72-5.28); SEGMENTED NEUTROPHILS % (AUTO) 57.4 % (42-78); TOTAL CELLS COUNTED % (AUTO) 100 %; WHITE BLOOD COUNT 7.2 10^3/uL (4.0-10.5)
[2019-02-18 13:24] LABS: HEMOGLOBIN 7.2 g/dL (12.0-15.5)
[2019-02-18] MEDS ORDERED: GLUCAGON,HUMAN RECOMB 1 MG INJ ONE (14:10)
[2019-02-18] MEDS ORDERED: FENTANYL CITRATE INJ/PF 100 MCG/2 ML AMPUL ONE (14:10)
[2019-02-18] MEDS ORDERED: EPINEPHRINE INJ 1 MG/10 ML DISP.SYRIN ONE (14:10)
[2019-02-18] MEDS ORDERED: FLUMAZENIL INJ 0.5 MG/5 ML VIAL ONE (14:10)
[2019-02-18] MEDS ORDERED: ONDANSETRON HCL INJ/PF 4 MG/2 ML SDV ONE (14:10)
[2019-02-18] MEDS ORDERED: DIPHENHYDRAMINE HCL 50 MG/ML VIAL ONE (14:10)
[2019-02-18] MEDS ORDERED: NALOXONE HCL INJ/PF 0.4 MG/1 ML SDV ONE (14:10)
[2019-02-18] MEDS ORDERED: MIDAZOLAM 2 MG/2 ML INJ ONE (14:10)
--- NOTE | 2019-02-18 15:25 | Operative Report ---
Operative Report DATE OF SURGERY: 02/18/19 PREOPERATIVE DIAGNOSIS: Melanotic stools; blood loss anemia; history of peptic ulcer disease POSTOPERATIVE DIAGNOSIS: Same with mild gastritis only; no evidence of acute upper GI bleed; no evidence of significant peptic ulcer disease OPERATION: Esophagogastroduodenoscopy with antral biopsy TISSUE REMOVED OR ALTERED: Biopsy of antrum COMPLICATIONS: None ESTIMATED BLOOD LOSS: Scant INTRAOPERATIVE FINDINGS: See below PROCEDURE: Patient was taken to the preop holding area the main endoscopy suite where appropriate level of sedation was induced after hooking the patient up to the monitoring devices. Surgical plan surgical timeout were conducted. Oral mouthpiece inserted. The flexible adult upper endoscope was advanced to the oropharynx down the esophagus through the stomach into the duodenum. There was no evidence of tumor stricture bleeding or polyp. There was minimal distortion of the pylorus but this was likely chronic not acute. There was changes consistent with mild chronic gastritis; photos taken, random antral biopsy mucosa taken for VLADIMIR testing and histologic analysis I advanced and withdrew the scope through the pylorus multiple times to ensure there was no evidence of ultrasound disease here and there appeared to be none. The scope was brought back into the stomach, stomach decompressed. The scope was retroflexed stomach to ensure no significant hiatal hernia and there was none. The scope was brought back to the esophagus which showed no evidence of tumor stricture or bleeding. There was no evidence of esophagitis. The Z line was at approximately 32 cm from the incisor. Patient tolerated the procedure well. She was taken back to the floor in stable condition. The impression was that the patient was suffering from a bleeding source distally; therefore the patient will be prepped for colonoscopy in the morning. This was discussed with patient's family.
[2019-02-18] MEDS: LIDOCAINE 5% (700 MG) TRANSDERMAL ADH..PATCH TP SCH (15:50)
[2019-02-18] MEDS ORDERED: NORMAL SALINE 250 ML IV PRN (15:54)
[2019-02-18] MEDS ORDERED: PEG 3350/NA SULF,BICARB,CL/KCL 4000 ML PO ONE (16:00)
--- NOTE | 2019-02-18 16:05 | PDOC PROGRESS REPORT ---
Subjective Progress Note for:: 02/18/19 Subjective:: This is a 68 year old female with a PMH of DM 2, chronic back pain, and known duodenal ulcer (see EGD in 2014) who presented with dizziness and melena. She was found to have a Hb of 7.0 and was admitted for GI bleed. No acute event overnight. She has not had a bowel movement yet since last night. No nausea or vomiting or abdominal pain. She got 2 units of pRBC which improved her Hb to 7.9 but repeat Hb this noon was 7.2. Ordered a 3rd unit of pRBC. Called by surgicalist and discussed EGD results which showed gastiris but no identifiable source of bleeding. She will be prepped for colonoscopy tomorrow morning. Reason For Visit: GI BLEED, ACUTE ANEMIA Physical Exam Vital Signs: Temp Pulse Resp BP Pulse Ox 98.4 F 86 18 134/79 H 100 02/18/19 14:21 02/18/19 15:28 02/18/19 15:28 02/18/19 15:28 02/18/19 15:28 Intake & Output 02/17/19 02/18/19 02/19/19 06:59 06:59 06:59 Intake Total 600 1200 Balance 600 1200 Weight 173 lb 11.588 oz General appearance: PRESENT: no acute distress, well-developed, well-nourished Head exam: PRESENT: atraumatic, normocephalic Eye exam: PRESENT: conjunctiva pink, EOMI, PERRLA. ABSENT: scleral icterus Ear exam: PRESENT: normal external ear exam Mouth exam: PRESENT: moist, tongue midline Neck exam: ABSENT: carotid bruit, JVD, lymphadenopathy, thyromegaly Respiratory exam: PRESENT: clear to auscultation alejandra. ABSENT: rales, rhonchi, wheezes Cardiovascular exam: PRESENT: RRR. ABSENT: diastolic murmur, rubs, systolic murmur Pulses: PRESENT: normal dorsalis pedis pul GI/Abdominal exam: PRESENT: normal bowel sounds, soft. ABSENT: distended, guarding, mass, organolmegaly, rebound, tenderness Rectal exam: PRESENT: deferred Neurological exam: PRESENT: alert, awake, oriented to person, oriented to place, oriented to time, oriented to situation, CN II-XII grossly intact. ABSENT: motor sensory deficit Results Laboratory Results: 02/18/19 12:55 02/18/19 05:55 02/17/19 02/18/19 02/18/19 16:50 01:40 05:55 WBC 9.4 8.2 RBC 2.65 L 2.62 L Hgb 8.0 L 7.9 L Hct 22.8 L 22.5 L MCV 86 D 86 MCH 30.2 30.2 MCHC 35.2 35.1 RDW 14.7 H 14.9 H Plt Count 258 248 Seg Neutrophils % 60.3 Lymphocytes % 30.0 Monocytes % 7.1 Eosinophils % 1.6 Basophils % 1.0 Absolute Neutrophils 4.9 Absolute Lymphocytes 2.5 Absolute Monocytes 0.6 Absolute Eosinophils 0.1 Absolute Basophils 0.1 Sodium Potassium Chloride Carbon Dioxide Anion Gap BUN Creatinine Est GFR ( Amer) Est GFR (Non-Af Amer) Glucose Calcium Blood Type O POSITIVE Antibody Screen NEGATIVE 02/18/19 02/18/19 05:55 12:55 WBC 7.2 RBC 2.35 L Hgb 7.2 L Hct 20.2 L MCV 86 MCH 30.5 MCHC 35.5 RDW 15.0 H Plt Count 254 Seg Neutrophils % 57.4 Lymphocytes % 35.2 Monocytes % 5.8 Eosinophils % 1.0 Basophils % 0.6 Absolute Neutrophils 4.1 Absolute Lymphocytes 2.5 Absolute Monocytes 0.4 Absolute Eosinophils 0.1 Absolute Basophils 0.0 Sodium 135.7 L Potassium 3.8 Chloride 107 Carbon Dioxide 24 Anion Gap 5 BUN 26 H Creatinine 0.74 Est GFR ( Amer) > 60 Est GFR (Non-Af Amer) > 60 Glucose 176 H Calcium 8.9 Blood Type Antibody Screen 02/17/19 02/17/19 13:40 13:40 Creatine Kinase 59 CK-MB (CK-2) 0.65 Troponin I < 0.012 Assessment and Plan - Diagnosis (1) Upper GI bleed Is this a current diagnosis for this admission?: Yes Plan: Continue Protonix drip. Surgery consult for EGD. Will be kept NPO. 2 units of pRBCs have been ordered in the ER. Will continue IV fluids. 02/18: She has not had a bowel movement yet since last night. No nausea or vomiting or abdominal pain. She got 2 units of pRBC which improved her Hb to 7.9 but repeat Hb this noon was 7.2. Ordered a 3rd unit of pRBC. Called by surgicalist and discussed EGD results which showed gastritis but no identifiable source of bleeding. She will be prepped for colonoscopy tomorrow morning. Will also order a unit of FFP. (2) Acute blood loss anemia Is this a current diagnosis for this admission?: Yes Plan: 2 units of pRBCs have been ordered in the ER. Will cycle H&H. As per number 1. (3) Diabetes mellitus, type 2 Is this a current diagnosis for this admission?: Yes Plan: Accuchekksenia JOHNSON with SSI. - Time Time Spent with patient: 25-34 minutes
[2019-02-18] MEDS: NORMAL SALINE 100 ML with PANTOPRAZOLE SODIUM 80 MG IV PRN ×2 (16:06)
--- NOTE | 2019-02-18 19:15 | RADIOLOGY REPORT (SQ) ---
EXAM DESCRIPTION: VENOUS UNILATERAL LOWER COMPLETED DATE/TIME: 02/18/2019 7:10 pm REASON FOR STUDY: right leg swelling COMPARISON: 12/02/2015. TECHNIQUE: Dynamic and static avila scale and color images acquired of the right leg venous system. S elected spectral images acquired with additional compression and augmentation maneuvers. The contrala teral common femoral vein and saphenofemoral junction were also imaged. Images stored on PACS. LIMITATIONS: None. FINDINGS: COMMON FEMORAL: Normal phasicity, compression and augmentation. No visualized echogenic ma terial on avila scale. No defects on color images. FEMORAL: Normal compression and augmentation. No visualized echogenic material on avila scale. No defe cts on color images. POPLITEAL: Normal compression, augmentation. No visualized echogenic material on avila scale. No defec ts on color images. CALF VESSELS: Normal compression, augmentation. No visualized echogenic material on avila scale. No de fects on color images. GSV and SSV: Normal compression, augmentation. No visualized echogenic material on avila scale. No def ects on color images. ANY DEEP VENOUS INSUFFICIENCY: Not evaluated. ANY EVIDENCE OF POPLITEAL CYST: No. OTHER: No other significant finding. CONTRALATERAL COMMON FEMORAL VEIN AND SAPHENOFEMORAL JUNCTION: Normal phasicity, compression and augmentation. No visualized echogenic material on avila scale. No de fects on color images. IMPRESSION: NO EVIDENCE OF DVT OR SVT IN THE RIGHT LEG. TECHNICAL DOCUMENTATION: JOB ID: [id number] [employer]- All Rights Reserved Reading location - IP/workstation name: [email or web address]
[2019-02-18] MEDS: PHARMACY COMMUNICATION ORDER MC SCH (22:19)
[2019-02-19] MEDS: NORMAL SALINE 100 ML with PANTOPRAZOLE SODIUM 80 MG IV PRN ×6 (00:09→21:45)
[2019-02-19 02:46] LABS: INTERNATIONAL RATION (INR) 0.98; PARTIAL THROMBOPLASTIN TIME 26.3 SEC (23.5-35.8); PROTHROMBIN TIME 13.5 SEC (11.4-15.4)
[2019-02-19 02:48] LABS: MEAN CORPUSCULAR HEMOGLOBIN 30.1 pg (27.0-33.4); MEAN CORPUSCULAR VOLUME 86 fl (80-97); PLATELET COUNT 233 10^3/uL (150-450); RED BLOOD COUNT 2.44 10^6/uL (3.72-5.28); RED CELL DISTRIBUTION WIDTH 15.2 % (11.5-14.0); WHITE BLOOD COUNT 6.8 10^3/uL (4.0-10.5)
[2019-02-19 02:52] LABS: HEMOGLOBIN 7.4 g/dL (12.0-15.5)
[2019-02-19] MEDS ORDERED: DIPHENHYDRAMINE HCL 50 MG/ML VIAL ONE (07:36)
[2019-02-19] MEDS ORDERED: ONDANSETRON HCL INJ/PF 4 MG/2 ML SDV ONE (07:36)
[2019-02-19] MEDS ORDERED: FLUMAZENIL INJ 0.5 MG/5 ML VIAL ONE (07:37)
[2019-02-19] MEDS ORDERED: EPINEPHRINE INJ 1 MG/10 ML DISP.SYRIN ONE (07:37)
[2019-02-19] MEDS ORDERED: NALOXONE HCL INJ/PF 0.4 MG/1 ML SDV ONE (07:37)
[2019-02-19] MEDS ORDERED: GLUCAGON,HUMAN RECOMB 1 MG INJ ONE (07:37)
[2019-02-19] MEDS: MIDAZOLAM 2 MG/2 ML INJ ONE ×3 (08:10→08:30)
[2019-02-19] MEDS: FENTANYL CITRATE INJ/PF 100 MCG/2 ML AMPUL ONE ×3 (08:12→08:26)
[2019-02-19] MEDS: INSULIN LISPRO 100 UNIT/ML 3 ML VIAL SUBCUT SCH ×4 (08:19→21:50)
--- NOTE | 2019-02-19 09:18 | Operative Report ---
Nonrecallable Operative Report DATE OF SURGERY: 02/19/19 PREOPERATIVE DIAGNOSIS: anemia POSTOPERATIVE DIAGNOSIS: anemia OPERATION: colonoscopy SURGEON: RAPHAEL SANCHEZ ANESTHESIA: Moderate Sedation TISSUE REMOVED OR ALTERED: polyo at 20cm COMPLICATIONS: none ESTIMATED BLOOD LOSS: 0 INTRAOPERATIVE FINDINGS: redundant colon PROCEDURE: see dictation
--- NOTE | 2019-02-19 09:44 | OPERATIVE REPORT E ---
Operative Report NAME: ANGELIQUE WHEELER : 1950 AGE: 68Y DATE OF SURGERY: 02/19/2019 ROOM: 322 PREOPERATIVE DIAGNOSIS: Anemia. POSTOPERATIVE DIAGNOSIS: Anemia. OPERATIVE PROCEDURE: Colonoscopy. SURGEON: RAPHAEL SANCHEZ M.D. ANESTHESIA: IV sedation. PROCEDURE: After appropriate time out and site verification, the patient was placed in the left lateral decubitus position. She was given IV sedation, including Fentanyl and Versed. The Olympus colonoscope was easily passed into the rectum and traversed up through the sigmoid colon to the descending colon, splenic flexure, transverse colon, hepatic flexure, and down towards the cecum. The cecum was visualized and the scope was slowly withdrawn. As we withdrew the scope we did not notice any evidence of any bleeding or polyps on the right side of the colon. We passed back through the hepatic flexure. The transverse colon appeared to be normal, as was the splenic flexure. As we withdrew the scope slowly down the descending colon we noted a number of diverticula. The scope was then slowly withdrawn through the sigmoid colon and at 20 cm we noted a sessile polyp that was biopsied. The scope was continued to be withdrawn. There was some moderate-sized hemorrhoids that were noted on withdrawal of the scope. There was no other evidence of any pathology. There was no evidence of any bleeding. The prep was good. The patient did have a redundant colon and it took some time passing the scope to the cecum, but there was no other evidence of acute blood loss or stigmata of bleeding. There was 1 polyp biopsied at 20 cm. The scope was withdrawn. The patient tolerated the procedure well. She will need a repeat colonoscopy in 3 years. DICTATING PHYSICIAN: RAPHAEL SANCHEZ M.D. [id number] PHY#: [id number] ID: [id number] JOB#: [id number] ACCT: [id number] cc:RAPHAEL SANCHEZ M.D. >
[2019-02-19] MEDS ORDERED: LIDOCAINE 5% (700 MG) TRANSDERMAL ADH..PATCH TP SCH (10:00)
[2019-02-19] MEDS: LIDOCAINE 5% (700 MG) TRANSDERMAL ADH..PATCH TP SCH (10:32)
--- NOTE | 2019-02-19 16:11 | PDOC PROGRESS REPORT ---
Subjective Progress Note for:: 02/19/19 Subjective:: No adverse events overnight. No new complaints. Vital signs been stable. No bleeding episodes. No abdominal pain. When I saw her she just got back from a colonoscopy but had not yet learn the results. Reason For Visit: GI BLEED, ACUTE ANEMIA Physical Exam Vital Signs: Temp Pulse Resp BP Pulse Ox 98.2 F 94 16 123/67 100 02/19/19 11:47 02/19/19 14:00 02/19/19 11:47 02/19/19 11:47 02/19/19 11:47 Intake & Output 02/18/19 02/19/19 02/20/19 06:59 06:59 06:59 Intake Total 600 2147 500 Balance 600 2147 500 Weight 78.8 kg 78.1 kg General appearance: PRESENT: no acute distress, cooperative, disheveled, obese Respiratory exam: PRESENT: clear to auscultation alejandra, symmetrical, unlabored. ABSENT: accessory muscle use, crackles, prolonged expiratory phas, rhonchi, tachypnea, wheezes Cardiovascular exam: PRESENT: RRR, +S1, +S2 Pulses: PRESENT: normal carotid pulses Vascular exam: PRESENT: normal capillary refill GI/Abdominal exam: PRESENT: normal bowel sounds, soft. ABSENT: distended, guarding, rebound, tenderness Extremities exam: ABSENT: clubbing, pedal edema Musculoskeletal exam: PRESENT: normal inspection. ABSENT: deformity Neurological exam: PRESENT: alert, awake, oriented to person, oriented to place, oriented to time, oriented to situation Psychiatric exam: PRESENT: appropriate affect, normal mood Skin exam: PRESENT: dry, warm Results Laboratory Results: 02/19/19 02:28 02/18/19 05:55 02/17/19 02/19/19 16:50 02:28 WBC 6.8 RBC 2.44 L Hgb 7.4 L Hct 21.0 L MCV 86 MCH 30.1 MCHC 35.0 RDW 15.2 H Plt Count 233 Blood Type O POSITIVE Antibody Screen NEGATIVE 02/17/19 02/17/19 13:40 13:40 Creatine Kinase 59 CK-MB (CK-2) 0.65 Troponin I < 0.012 Impressions: Venous Doppler Study 02/18/19 00:00 IMPRESSION: NO EVIDENCE OF DVT OR SVT IN THE RIGHT LEG. Assessment and Plan - Diagnosis (1) Acute blood loss anemia Is this a current diagnosis for this admission?: Yes Plan: Hemoglobin stable today compared to yesterday. 7.4 hemoglobin today. She will need iron supplement. (2) Upper GI bleed Is this a current diagnosis for this admission?: Yes Plan: EGD was negative. Colonoscopy today showed one small polyp about 20 cm in that was removed, and some scattered diverticuli were noted, but no source of bleeding was detected. Dr. Colvin recommended a barium enema with air because he said the colon was redundant and somewhat tortuous and he recommended the barium study in case there was a lesion that he could have missed on colonoscopy. If this test is negative, we will monitor her for a couple of days to see what her hemoglobin does, and if it does not drop any more, we will set her up for an outpatient capsule endoscopy. - Time Time Spent with patient: 25-34 minutes
--- NOTE | 2019-02-19 16:16 | RADIOLOGY REPORT (SQ) ---
EXAM DESCRIPTION: BARIUM ENEMA W/AIR COMPLETED DATE/TIME: 02/19/2019 2:55 pm REASON FOR STUDY: redundant colon with unidentified hemorrhage COMPARISON: None. FLUOROSCOPY TIME: 2.8 minutes of fluoroscopy was used 21 images saved to PACS. TECHNIQUE: Following retrograde filling of the colon with barium and air, fluoroscopic spot and over head imaging of the colon was obtained and saved to PACS. LIMITATIONS: None. FINDINGS: [employer]IST KUB: Normal abdominal film with adequate bowel prep. CECUM: Normal mucosa without intraluminal filling defects, intrinsic or extrinsic masses, or lesions. ASCENDING COLON: Normal mucosa without intraluminal filling defects, intrinsic or extrinsic masses, o r lesions. TRANSVERSE COLON: Normal mucosa without intraluminal filling defects, intrinsic or extrinsic masses, or lesions. DESCENDING COLON: Normal mucosa without intraluminal filling defects, intrinsic or extrinsic masses, or lesions. SIGMOID COLON: Normal mucosa without intraluminal filling defects, intrinsic or extrinsic masses, or lesions. RECTUM: Normal mucosa without intraluminal filling defects, intrinsic or extrinsic masses, or lesions . POST EVAC: Partial evacuation of barium with no additional findings. OTHER: No other significant finding. IMPRESSION: NORMAL AIR CONTRAST BARIUM ENEMA. COMMENT: Quality ID [id number]: Final reports for procedures using fluoroscopy that document radiation exp osure indices, or exposure time and number of fluorographic images (if radiation exposure indices are not available) TECHNICAL DOCUMENTATION: JOB ID: [id number] [employer]- All Rights Reserved Reading location - IP/workstation name: [email or web address] [id number]
[2019-02-19] MEDS: PHARMACY COMMUNICATION ORDER MC SCH (21:48)
[2019-02-19] MEDS: NORMAL SALINE 1000 ML 1,000 ML IV PRN (23:52)
[2019-02-20] MEDS: INSULIN LISPRO 100 UNIT/ML 3 ML VIAL SUBCUT SCH ×4 (08:06→22:47)
[2019-02-20] MEDS: NORMAL SALINE 100 ML with PANTOPRAZOLE SODIUM 80 MG IV PRN ×2 (08:06)
[2019-02-20] MEDS: NORMAL SALINE 1000 ML 1,000 ML IV PRN ×2 (08:07→15:30)
[2019-02-20] MEDS: LIDOCAINE 5% (700 MG) TRANSDERMAL ADH..PATCH TP SCH (09:07)
[2019-02-20 09:19] LABS: HEMATOCRIT 17.5 % (36.0-47.0); MEAN CORPUSCULAR HEMOGLOBIN 30.3 pg (27.0-33.4); MEAN CORPUSCULAR HGB CONC 34.1 g/dL (32.0-36.0); MEAN CORPUSCULAR VOLUME 89 fl (80-97); PLATELET COUNT 234 10^3/uL (150-450); RED BLOOD COUNT 1.97 10^6/uL (3.72-5.28); RED CELL DISTRIBUTION WIDTH 14.9 % (11.5-14.0); WHITE BLOOD COUNT 6.1 10^3/uL (4.0-10.5)
--- NOTE | 2019-02-20 10:05 | PDOC PROGRESS REPORT ---
Subjective Progress Note for:: 02/20/19 Subjective:: The patient denies abdominal pain, nausea, or vomiting. She reports passing dark stools this morning again after the barium enema. Reason For Visit: GI BLEED, ACUTE ANEMIA Physical Exam Vital Signs: Temp Pulse Resp BP Pulse Ox 97.9 F 86 17 127/52 H 96 02/20/19 03:21 02/20/19 06:51 02/20/19 03:21 02/20/19 03:21 02/20/19 03:21 Intake & Output 02/19/19 02/20/19 02/21/19 06:59 06:59 06:59 Intake Total 3147 1622 1100 Balance 3147 1622 1100 Weight 78.1 kg 80.6 kg General appearance: PRESENT: no acute distress Respiratory exam: PRESENT: clear to auscultation alejandra Cardiovascular exam: PRESENT: RRR GI/Abdominal exam: PRESENT: normal bowel sounds, soft Results Laboratory Results: 02/20/19 08:46 02/18/19 05:55 02/20/19 08:46 WBC 6.1 RBC 1.97 L Hgb 6.0 L Hct 17.5 L MCV 89 MCH 30.3 MCHC 34.1 RDW 14.9 H Plt Count 234 02/17/19 02/17/19 13:40 13:40 Creatine Kinase 59 CK-MB (CK-2) 0.65 Troponin I < 0.012 Impressions: Venous Doppler Study 02/18/19 00:00 IMPRESSION: NO EVIDENCE OF DVT OR SVT IN THE RIGHT LEG. Barium Enema w/ Air Contrast, therapeutic 02/19/19 00:00 IMPRESSION: NORMAL AIR CONTRAST BARIUM ENEMA. Assessment & Plan - Diagnosis (1) GI bleeding Qualifiers: GI bleed type/associated pathology: unspecified gastrointestinal hemorrhage type Qualified Code(s): K92.2 - Gastrointestinal hemorrhage, unspecified Is this a current diagnosis for this admission?: Yes - Plan Summary Plan Summary: A/ Anemia with melanotic stools S/P EGD and colonoscopy, both negative for a cause of bleeding S/p negative barium lower GI done yesterday H/H has dropped again today from 7.4/21 to current 05/06 P/ Agree with transfusion of 2 U PRBC today as per Hospitalist My recommendation is to transfuse her first; once her H/H have increased appropriately and they remain stable x 24hrs, she could be discharged to home Arrange for small bowel capsule endoscopy by Dr. Disla as an outpatient procedure. I will sign off. Call me with questions.
--- NOTE | 2019-02-20 16:03 | PDOC PROGRESS REPORT ---
Subjective Progress Note for:: 02/20/19 Subjective:: No adverse events overnight. She did report a bowel movement with some dark looking blood in it last night. Her hemoglobin was low this morning and she is getting some packed red blood cells. She is not having any abdominal pain. Reason For Visit: GI BLEED, ACUTE ANEMIA Physical Exam Vital Signs: Temp Pulse Resp BP Pulse Ox 98.4 F 96 16 117/52 L 97 02/20/19 15:22 02/20/19 15:22 02/20/19 15:22 02/20/19 15:22 02/20/19 15:22 Intake & Output 02/19/19 02/20/19 02/21/19 06:59 06:59 06:59 Intake Total 3147 1622 2323 Balance 3147 1622 2323 Weight 78.1 kg 80.6 kg General appearance: PRESENT: no acute distress, cooperative, disheveled, obese Respiratory exam: PRESENT: clear to auscultation alejandra, symmetrical, unlabored. ABSENT: accessory muscle use, crackles, prolonged expiratory phas, rhonchi, tachypnea, wheezes Cardiovascular exam: PRESENT: RRR, +S1, +S2 Pulses: PRESENT: normal carotid pulses Vascular exam: PRESENT: normal capillary refill GI/Abdominal exam: PRESENT: normal bowel sounds, soft. ABSENT: distended, guarding, rebound, tenderness Extremities exam: ABSENT: clubbing, pedal edema Musculoskeletal exam: PRESENT: normal inspection. ABSENT: deformity Neurological exam: PRESENT: alert, awake, oriented to person, oriented to place, oriented to time, oriented to situation Psychiatric exam: PRESENT: appropriate affect, normal mood Skin exam: PRESENT: dry, warm Results Laboratory Results: 02/20/19 08:46 02/18/19 05:55 02/20/19 02/20/19 08:46 09:58 WBC 6.1 RBC 1.97 L Hgb 6.0 L Hct 17.5 L MCV 89 MCH 30.3 MCHC 34.1 RDW 14.9 H Plt Count 234 Blood Type O POSITIVE Antibody Screen NEGATIVE 02/17/19 02/17/19 13:40 13:40 Creatine Kinase 59 CK-MB (CK-2) 0.65 Troponin I < 0.012 Impressions: Venous Doppler Study 02/18/19 00:00 IMPRESSION: NO EVIDENCE OF DVT OR SVT IN THE RIGHT LEG. Barium Enema w/ Air Contrast, therapeutic 02/19/19 00:00 IMPRESSION: NORMAL AIR CONTRAST BARIUM ENEMA. Assessment and Plan - Diagnosis (1) Acute blood loss anemia Is this a current diagnosis for this admission?: Yes Plan: No source of bleeding was found on EGD or colonoscopy, barium enema was unremarkable. Still bleeding, likely a small bowel source. We will give her some more packed red blood cells today and monitor the trend her hemoglobin to see if she needs repeat transfusion. (2) Upper GI bleed Is this a current diagnosis for this admission?: Yes Plan: She will likely need a capsule endoscopy which is done as an outpatient. We will need to make sure that she is got adequate hemostasis first before we discharge her and set that up for her as an outpatient. - Time Time Spent with patient: 25-34 minutes
[2019-02-20] MEDS: PANTOPRAZOLE SODIUM 40 MG VIAL IV SCH (18:07)
[2019-02-20 20:30] LABS: ABSOLUTE BASOPHILS # (AUTO) 0.1 10^3/uL (0.0-0.2); ABSOLUTE EOSINOPHILS # (AUTO) 0.1 10^3/uL (0.0-0.6); ABSOLUTE LYMPHOCYTES (AUTO) 2.7 10^3/uL (0.5-4.7); ABSOLUTE MONOCYTES (AUTO) 0.6 10^3/uL (0.1-1.4); ABSOLUTE NEUT (AUTO) 3.5 10^3/uL (1.7-8.2); BASOPHILS % (AUTO) 0.9 % (0-2); EOSINOPHILS % (AUTO) 1.2 % (0-6); HEMATOCRIT 21.9 % (36.0-47.0); LYMPHOCYTES % (AUTO) 39.4 % (13-45); MEAN CORPUSCULAR HEMOGLOBIN 30.7 pg (27.0-33.4); MEAN CORPUSCULAR HGB CONC 34.8 g/dL (32.0-36.0); MEAN CORPUSCULAR VOLUME 88 fl (80-97); MONOCYTES % (AUTO) 8.1 % (3-13); PLATELET COUNT 200 10^3/uL (150-450); RED BLOOD COUNT 2.48 10^6/uL (3.72-5.28); RED CELL DISTRIBUTION WIDTH 15.1 % (11.5-14.0); SEGMENTED NEUTROPHILS % (AUTO) 50.4 % (42-78); TOTAL CELLS COUNTED % (AUTO) 100 %; WHITE BLOOD COUNT 6.9 10^3/uL (4.0-10.5)
[2019-02-20 20:50] LABS: HEMOGLOBIN 7.6 g/dL (12.0-15.5)
[2019-02-20] MEDS: PHARMACY COMMUNICATION ORDER MC SCH (22:47)
[2019-02-21] MEDS: NORMAL SALINE 1000 ML 1,000 ML IV PRN ×3 (00:45→16:02)
[2019-02-21 01:11] LABS: HEMATOCRIT 21.6 % (36.0-47.0); MEAN CORPUSCULAR HEMOGLOBIN 30.8 pg (27.0-33.4); MEAN CORPUSCULAR HGB CONC 35.3 g/dL (32.0-36.0); MEAN CORPUSCULAR VOLUME 87 fl (80-97); PLATELET COUNT 208 10^3/uL (150-450); RED BLOOD COUNT 2.48 10^6/uL (3.72-5.28); RED CELL DISTRIBUTION WIDTH 15.2 % (11.5-14.0); WHITE BLOOD COUNT 7.1 10^3/uL (4.0-10.5)
[2019-02-21 01:12] LABS: HEMOGLOBIN 7.6 g/dL (12.0-15.5)
[2019-02-21] MEDS: PANTOPRAZOLE SODIUM 40 MG VIAL IV SCH ×2 (05:03→17:38)
[2019-02-21 07:02] LABS: HEMATOCRIT 24.4 % (36.0-47.0); HEMOGLOBIN 8.5 g/dL (12.0-15.5); MEAN CORPUSCULAR HEMOGLOBIN 30.6 pg (27.0-33.4); MEAN CORPUSCULAR VOLUME 88 fl (80-97); PLATELET COUNT 196 10^3/uL (150-450); RED BLOOD COUNT 2.79 10^6/uL (3.72-5.28); WHITE BLOOD COUNT 6.1 10^3/uL (4.0-10.5)
[2019-02-21] MEDS: INSULIN LISPRO 100 UNIT/ML 3 ML VIAL SUBCUT SCH ×4 (08:23→22:19)
[2019-02-21] MEDS: LIDOCAINE 5% (700 MG) TRANSDERMAL ADH..PATCH TP SCH (09:29)
--- NOTE | 2019-02-21 16:33 | PDOC PROGRESS REPORT ---
Subjective Progress Note for:: 02/21/19 Subjective:: No adverse events overnight. No new complaints. No abdominal pain. No melena or hematochezia. Tolerating her mechanical soft diet. Reason For Visit: GI BLEED, ACUTE ANEMIA Physical Exam Vital Signs: Temp Pulse Resp BP Pulse Ox 98.5 F 80 16 106/51 L 99 02/21/19 08:09 02/21/19 14:00 02/21/19 08:09 02/21/19 08:09 02/21/19 08:09 Intake & Output 02/20/19 02/21/19 02/22/19 06:59 06:59 06:59 Intake Total 1622 4688 1881 Balance 1622 4688 1881 Weight 80.6 kg 80.4 kg General appearance: PRESENT: no acute distress, cooperative, disheveled, obese Respiratory exam: PRESENT: clear to auscultation alejandra, symmetrical, unlabored. ABSENT: accessory muscle use, crackles, prolonged expiratory phas, rhonchi, tachypnea, wheezes Cardiovascular exam: PRESENT: RRR, +S1, +S2 Pulses: PRESENT: normal carotid pulses Vascular exam: PRESENT: normal capillary refill GI/Abdominal exam: PRESENT: normal bowel sounds, soft. ABSENT: distended, guarding, rebound, tenderness Extremities exam: ABSENT: clubbing, pedal edema Musculoskeletal exam: PRESENT: normal inspection. ABSENT: deformity Neurological exam: PRESENT: alert, awake, oriented to person, oriented to place, oriented to time, oriented to situation Psychiatric exam: PRESENT: appropriate affect, normal mood Skin exam: PRESENT: dry, warm Results Laboratory Results: 02/21/19 06:45 02/18/19 05:55 02/20/19 02/20/19 02/21/19 09:58 19:58 00:58 WBC 6.9 7.1 RBC 2.48 L 2.48 L Hgb 7.6 L 7.6 L Hct 21.9 L 21.6 L MCV 88 87 MCH 30.7 30.8 MCHC 34.8 35.3 RDW 15.1 H 15.2 H Plt Count 200 208 Seg Neutrophils % 50.4 Lymphocytes % 39.4 Monocytes % 8.1 Eosinophils % 1.2 Basophils % 0.9 Absolute Neutrophils 3.5 Absolute Lymphocytes 2.7 Absolute Monocytes 0.6 Absolute Eosinophils 0.1 Absolute Basophils 0.1 Blood Type O POSITIVE Antibody Screen NEGATIVE 02/21/19 06:45 WBC 6.1 RBC 2.79 L Hgb 8.5 L Hct 24.4 L MCV 88 MCH 30.6 MCHC 35.0 RDW 15.0 H Plt Count 196 Seg Neutrophils % Lymphocytes % Monocytes % Eosinophils % Basophils % Absolute Neutrophils Absolute Lymphocytes Absolute Monocytes Absolute Eosinophils Absolute Basophils Blood Type Antibody Screen 02/17/19 02/17/19 13:40 13:40 Creatine Kinase 59 CK-MB (CK-2) 0.65 Troponin I < 0.012 Impressions: Venous Doppler Study 02/18/19 00:00 IMPRESSION: NO EVIDENCE OF DVT OR SVT IN THE RIGHT LEG. Barium Enema w/ Air Contrast, therapeutic 02/19/19 00:00 IMPRESSION: NORMAL AIR CONTRAST BARIUM ENEMA. Assessment and Plan - Diagnosis (1) Acute blood loss anemia Is this a current diagnosis for this admission?: Yes Plan: No source of bleeding was found on EGD or colonoscopy, barium enema was unremarkable. Likely a small bowel source. We will give her some more packed red blood cells today, hemoglobin was 8.5. (2) Upper GI bleed Is this a current diagnosis for this admission?: Yes Plan: Does not seem to be losing any blood now. We will to make sure that her hemoglobin has stabilized for a couple of days. Once that has happened without requiring repeated transfusions, we will set her up for an outpatient capsule endoscopy. - Time Time Spent with patient: 25-34 minutes
[2019-02-21 20:22] LABS: HEMATOCRIT 25.1 % (36.0-47.0); HEMOGLOBIN 8.9 g/dL (12.0-15.5); MEAN CORPUSCULAR HEMOGLOBIN 31.4 pg (27.0-33.4); MEAN CORPUSCULAR HGB CONC 35.6 g/dL (32.0-36.0); MEAN CORPUSCULAR VOLUME 88 fl (80-97); PLATELET COUNT 228 10^3/uL (150-450); RED BLOOD COUNT 2.84 10^6/uL (3.72-5.28); RED CELL DISTRIBUTION WIDTH 15.4 % (11.5-14.0); WHITE BLOOD COUNT 6.9 10^3/uL (4.0-10.5)
[2019-02-21] MEDS: PHARMACY COMMUNICATION ORDER MC SCH (22:23)
[2019-02-22] MEDS: NORMAL SALINE 1000 ML 1,000 ML IV PRN ×2 (00:23→08:51)
[2019-02-22] MEDS: PANTOPRAZOLE SODIUM 40 MG VIAL IV SCH ×2 (05:23→17:41)
[2019-02-22] MEDS: INSULIN LISPRO 100 UNIT/ML 3 ML VIAL SUBCUT SCH ×4 (08:50→22:15)
[2019-02-22] MEDS: LIDOCAINE 5% (700 MG) TRANSDERMAL ADH..PATCH TP SCH (08:59)
[2019-02-22 09:57] LABS: HEMATOCRIT 23.3 % (36.0-47.0); HEMOGLOBIN 8.3 g/dL (12.0-15.5); MEAN CORPUSCULAR HEMOGLOBIN 31.2 pg (27.0-33.4); MEAN CORPUSCULAR HGB CONC 35.4 g/dL (32.0-36.0); MEAN CORPUSCULAR VOLUME 88 fl (80-97); PLATELET COUNT 227 10^3/uL (150-450); RED BLOOD COUNT 2.64 10^6/uL (3.72-5.28); RED CELL DISTRIBUTION WIDTH 15.4 % (11.5-14.0); WHITE BLOOD COUNT 9.3 10^3/uL (4.0-10.5)
--- NOTE | 2019-02-22 14:48 | PDOC PROGRESS REPORT ---
Subjective Progress Note for:: 02/22/19 Subjective:: No adverse events overnight. No new complaints. No abdominal pain. She is not had any melena or hematochezia. No nausea or vomiting. Wants to have her diet advanced. Reason For Visit: GI BLEED, ACUTE ANEMIA Physical Exam Vital Signs: Temp Pulse Resp BP Pulse Ox 98.2 F 94 18 125/58 L 99 02/22/19 11:34 02/22/19 11:34 02/22/19 11:34 02/22/19 11:34 02/22/19 11:34 Intake & Output 02/21/19 02/22/19 02/23/19 06:59 06:59 06:59 Intake Total 4688 5532 1623 Balance 4688 5517 1623 Weight 80.4 kg 80.7 kg General appearance: PRESENT: no acute distress, cooperative, disheveled, obese Respiratory exam: PRESENT: clear to auscultation alejandra, symmetrical, unlabored. ABSENT: accessory muscle use, crackles, prolonged expiratory phas, rhonchi, tachypnea, wheezes Cardiovascular exam: PRESENT: RRR, +S1, +S2 Pulses: PRESENT: normal carotid pulses Vascular exam: PRESENT: normal capillary refill GI/Abdominal exam: PRESENT: normal bowel sounds, soft. ABSENT: distended, guarding, rebound, tenderness Extremities exam: ABSENT: clubbing, pedal edema Musculoskeletal exam: PRESENT: normal inspection. ABSENT: deformity Neurological exam: PRESENT: alert, awake, oriented to person, oriented to place, oriented to time, oriented to situation Psychiatric exam: PRESENT: appropriate affect, normal mood Skin exam: PRESENT: dry, warm Results Laboratory Results: 02/22/19 09:36 02/18/19 05:55 02/21/19 02/22/19 20:00 09:36 WBC 6.9 9.3 RBC 2.84 L 2.64 L Hgb 8.9 L 8.3 L Hct 25.1 L 23.3 L MCV 88 88 MCH 31.4 31.2 MCHC 35.6 35.4 RDW 15.4 H 15.4 H Plt Count 228 227 02/17/19 02/17/19 13:40 13:40 Creatine Kinase 59 CK-MB (CK-2) 0.65 Troponin I < 0.012 Impressions: Venous Doppler Study 02/18/19 00:00 IMPRESSION: NO EVIDENCE OF DVT OR SVT IN THE RIGHT LEG. Barium Enema w/ Air Contrast, therapeutic 02/19/19 00:00 IMPRESSION: NORMAL AIR CONTRAST BARIUM ENEMA. Assessment and Plan - Diagnosis (1) Acute blood loss anemia Is this a current diagnosis for this admission?: Yes Plan: No source of bleeding was found on EGD or colonoscopy, barium enema was unremarkable. Likely a small bowel source. We gave her some more packed red cells but her hemoglobin did not change very much, and so we stopped her IV fluids, thinking that she was getting some hemodilution because she has not had any visible blood loss. (2) Upper GI bleed Is this a current diagnosis for this admission?: Yes Plan: Does not seem to be losing any blood now. We will to make sure that her hemoglobin has stabilized for a couple of days. Once that has happened without requiring repeated transfusions, we will set her up for an outpatient capsule endoscopy. Because she may be discharged over the weekend, I am going to go ahead and call Dr. Cifuentes's office to try to set this up. - Time Time Spent with patient: 25-34 minutes
[2019-02-22] MEDS: PHARMACY COMMUNICATION ORDER MC SCH (22:16)
[2019-02-23 08:16] LABS: HEMATOCRIT 21.7 % (36.0-47.0); MEAN CORPUSCULAR HEMOGLOBIN 30.5 pg (27.0-33.4); MEAN CORPUSCULAR HGB CONC 34.7 g/dL (32.0-36.0); MEAN CORPUSCULAR VOLUME 88 fl (80-97); PLATELET COUNT 239 10^3/uL (150-450); RED BLOOD COUNT 2.47 10^6/uL (3.72-5.28); RED CELL DISTRIBUTION WIDTH 15.8 % (11.5-14.0); WHITE BLOOD COUNT 7.2 10^3/uL (4.0-10.5)
[2019-02-23 08:18] LABS: HEMOGLOBIN 7.5 g/dL (12.0-15.5)
[2019-02-23] MEDS: INSULIN LISPRO 100 UNIT/ML 3 ML VIAL SUBCUT SCH ×4 (08:52→22:47)
[2019-02-23] MEDS: PANTOPRAZOLE SODIUM 40 MG VIAL IV SCH ×2 (09:31→18:36)
[2019-02-23] MEDS: LIDOCAINE 5% (700 MG) TRANSDERMAL ADH..PATCH TP SCH (09:31)
[2019-02-23] MEDS ORDERED: LISINOPRIL 5 MG TABLET PO SCH (10:00)
--- NOTE | 2019-02-23 10:09 | PROGRESS NOTE E ---
Progress Note NAME: ANGELIQUE WHEELER : 1950 AGE: 68Y DATE: 02/23/2019 ROOM: 322 SUBJECTIVE: The patient is currently lying in bed. She states that she feels okay today. Denies any nausea, vomiting, or diarrhea. No shortness of breath, dizziness, or chest pain. No fevers or chills. She did have one bowel movement yesterday she described as soft and brown. Denies any melenic appearance. There has been no melena or hematochezia, hematemesis, or coffee ground emesis. The patient does not voice any other concerns at this time. REVIEW OF SYSTEMS: The rest of the review of systems is negative. MEDICATIONS: Medication reviewed. OBJECTIVE: GENERAL: The patient is a 68-year-old female who is awake, alert, and oriented to person, place, and situation. She is verbal, conversational, and does not appear to be in any acute distress. VITAL SIGNS: Temperature 98.6, pulse 86, respirations 18, blood pressure 103/55, oxygen saturation 96% on room air. SKIN: Warm and dry, no rashes, not diaphoretic. HEENT: Pupils equal, round, reactive to light and accommodation. Conjunctivae pink. No evidence of JVP. CVS: Heart is regular. No murmur or rub. CHEST: Clear, symmetrical, unlabored. ABDOMEN: Soft, nontender, nondistended. BACK: No CVA tenderness. EXTREMITIES: No clubbing, cyanosis, or edema. PSYCHIATRIC: Appropriate affect, pleasant mood. DIAGNOSTICS/LAB VALUES: Hematology obtained on 02/23/2019: WBC 7.2, hemoglobin 7.5, hematocrit 21.6, platelet count 239,000. ASSESSMENT AND PLAN: 1. ACUTE BLOOD LOSS ANEMIA. The patient's hemoglobin is 7.5 today. Her IV fluids were just stopped yesterday. Will repeat CBC in the a.m. and transfuse if hemoglobin is less than 7. I do want to see if the patient is able to self-sustain or if she is transfusion dependent. 2. UPPER GASTROINTESTINAL BLEED. Most likely small bowel in etiology, as the patient has had negative endoscopies. She does have a schedule for an outpatient small bowel capsule with Dr. Cifuentes on Monday. 3. HYPERTENSION. Blood pressures have been in an acceptable range. 4. DIABETES MELLITUS TYPE 2. Will continue sliding scale coverage. 5. GASTROESOPHAGEAL REFLUX DISEASE. Will continue with PPI therapy. DISPOSITION: The patient is a full code. Depending on the patient's symptomatology and diagnostic findings, will reevaluate in the a.m. Time spent on this followup including assessment, plan, physical examination, patient education, and review of records is 25 minutes. DICTATING PHYSICIAN: BROOKLYN CABRERA NP [id number] [facility]#: [id number] ID: [id number] JOB#: [id number] ACCT: [id number] cc: >
[2019-02-23] MEDS ORDERED: ACETAMINOPHEN 325 MG TABLET PO PRN (12:41)
[2019-02-23] MEDS ORDERED: ATORVASTATIN CALCIUM 80 MG TABLET PO SCH (22:00)
[2019-02-23] MEDS: PHARMACY COMMUNICATION ORDER MC SCH (22:48)
[2019-02-24 05:14] LABS: HEMATOCRIT 21.2 % (36.0-47.0); MEAN CORPUSCULAR HEMOGLOBIN 31.2 pg (27.0-33.4); MEAN CORPUSCULAR HGB CONC 35.1 g/dL (32.0-36.0); MEAN CORPUSCULAR VOLUME 89 fl (80-97); PLATELET COUNT 243 10^3/uL (150-450); RED BLOOD COUNT 2.38 10^6/uL (3.72-5.28); WHITE BLOOD COUNT 6.3 10^3/uL (4.0-10.5)
[2019-02-24 05:20] LABS: HEMOGLOBIN 7.4 g/dL (12.0-15.5)
[2019-02-24 05:23] LABS: ANION GAP 7 (5-19); BLOOD UREA NITROGEN 16 mg/dL (7-20); CALCIUM 9.1 mg/dL (8.4-10.2); CARBON DIOXIDE 26 mmol/L (22-30); CHLORIDE 105 mmol/L (98-107); GLUCOSE 116 mg/dL (75-110); POTASSIUM 3.7 mmol/L (3.6-5.0); SODIUM 137.5 mmol/L (137-145)
[2019-02-24] MEDS ORDERED: MAGNESIUM SULFATE/D5W 1 GM/100 ML RTUPB IV ONE (08:18)
[2019-02-24] MEDS: INSULIN LISPRO 100 UNIT/ML 3 ML VIAL SUBCUT SCH ×4 (08:27→22:06)
[2019-02-24] MEDS: AMOXICILLIN TRIHYDRATE 500 MG CAPSULE PO SCH ×2 (09:46→21:32)
[2019-02-24] MEDS: LIDOCAINE 5% (700 MG) TRANSDERMAL ADH..PATCH TP SCH (09:47)
--- NOTE | 2019-02-24 10:44 | PROGRESS NOTE E ---
Progress Note NAME: ANGELIQUE WHEELER : 1950 AGE: 68Y DATE: 02/24/2019 ROOM: 322 SUBJECTIVE: The patient is lying in bed this morning. She states she feels pretty good today. She has been eating her meals, tolerating without issue. The patient denies any nausea, vomiting or diarrhea. No shortness of breath, dizziness or chest pain. No fever or chills. No melena, no hematochezia, hematemesis or coffee-ground emesis. I did discuss the patient's hemoglobin this morning. Will repeat it in the a.m. to see how this does. The patient is agreeable to this. Additionally, the patient's biopsies from 02/18/2019 revealed Helicobacter pylori. The patient has never been diagnosed with Helicobacter pylori in the past; therefore, she is agreeable to triple therapy. The patient does not voice any other concerns at this time. REVIEW OF SYSTEMS: The rest of the review of systems is negative. MEDICATION: Reviewed. OBJECTIVE: GENERAL: The patient is a 68-year-old female who is awake, alert and oriented to person, place, time and situation. She is verbal and conversational. Does not appear to be in any acute distress. VITAL SIGNS: Temperature is 98.0, pulse 79, respirations 20, blood pressure is 117/53, oxygen saturation 98% on room air. SKIN: Warm and dry. No rash. Not diaphoretic. HEENT: Pupils equal, round, reactive to light and accommodation. Conjunctivae pink. No evidence of JVP. CVS: Heart is regular. No murmurs or rubs. CHEST: Clear, symmetrical, unlabored. ABDOMEN: Soft, nontender, nondistended. Bowel sounds are present. EXTREMITIES: There is no edema. DIAGNOSTICS: Lab values are as follows: Hematology obtained on 02/24/2019: WBCs are 6.3, hemoglobin 7.4, hematocrit 31.2, platelet count is 243,000. Chemistry obtained on 02/24/2019: Sodium is 137, potassium 4.0, chloride is 105, carbon dioxide 26, BUN 16, creatinine 0.73, glucose 116, calcium is 9.1, magnesium is 1.5. IMPRESSION AND PLAN: 1. ACUTE BLOOD LOSS ANEMIA. Patient's hemoglobin is 7.4 today. IV fluids were stopped 48 hours ago. Repeat her CBC in the a.m. If the patient drops any more to 7, will transfuse her; however, I do want to see what the patient can do on her own, to see if she can sustain herself outside the hospital and not be transfusion-dependent. 2. UPPER GI BLEED, MOST LIKELY SMALL BOWEL ETIOLOGY. Patient had negative endoscopies. She does have scheduled outpatient small bowel capsule with Dr. Rincon on Monday. 3. HELICOBACTER PYLORI GASTRITIS. Will treat the patient with triple therapy given that she is neelam. 4. HYPERTENSION. Blood pressures within acceptable range. 5. DIABETES MELLITUS TYPE 2. Continue sliding scale coverage. 6. GERD. The patient is on PPI therapy, but add treatment dose. DISPOSITION: The patient is a FULL CODE. Pending patient's symptomatology and diagnostic findings, will reevaluate in the a.m. The patient can be downgraded to a medical bed. Time spent on this followup, including assessment, plan, physical examination, patient education and review of records, is 20 minutes. DICTATING PHYSICIAN: BROOKLYN CABRERA NP [id number] PHY#: [id number] ID: [id number] JOB#: [id number] ACCT: [id number] cc: > MTDD
[2019-02-24] MEDS: CLARITHROMYCIN 500 MG TABLET PO SCH ×2 (11:00→17:07)
[2019-02-24] MEDS: PANTOPRAZOLE SODIUM 40 MG TABLET.DR PO SCH (16:24)
[2019-02-24] MEDS: PHARMACY COMMUNICATION ORDER MC SCH (22:14)
[2019-02-25] MEDS: PANTOPRAZOLE SODIUM 40 MG TABLET.DR PO SCH (06:11)
[2019-02-25 06:48] LABS: HEMATOCRIT 22.5 % (36.0-47.0); MEAN CORPUSCULAR HEMOGLOBIN 31.1 pg (27.0-33.4); MEAN CORPUSCULAR HGB CONC 34.9 g/dL (32.0-36.0); MEAN CORPUSCULAR VOLUME 89 fl (80-97); PLATELET COUNT 332 10^3/uL (150-450); RED BLOOD COUNT 2.52 10^6/uL (3.72-5.28); RED CELL DISTRIBUTION WIDTH 16.6 % (11.5-14.0); WHITE BLOOD COUNT 6.7 10^3/uL (4.0-10.5)
[2019-02-25 06:53] LABS: HEMOGLOBIN 7.8 g/dL (12.0-15.5)
[2019-02-25 07:03] LABS: BLOOD UREA NITROGEN 16 mg/dL (7-20); CALCIUM 9.3 mg/dL (8.4-10.2); GLUCOSE 181 mg/dL (75-110)
[2019-02-25 07:08] LABS: ANION GAP 6 (5-19); CARBON DIOXIDE 27 mmol/L (22-30); CHLORIDE 103 mmol/L (98-107); SODIUM 136.4 mmol/L (137-145)
[2019-02-25] MEDS: INSULIN LISPRO 100 UNIT/ML 3 ML VIAL SUBCUT SCH (08:37)
[2019-02-25 09:05] VITALS: BP 118/60
[2019-02-25] MEDS: AMOXICILLIN TRIHYDRATE 500 MG CAPSULE PO SCH (10:20)
[2019-02-25] MEDS: LIDOCAINE 5% (700 MG) TRANSDERMAL ADH..PATCH TP SCH (10:21)
[2019-02-25] MEDS: CLARITHROMYCIN 500 MG TABLET PO SCH (10:21)
--- NOTE | 2019-02-25 21:04 | DISCHARGE SUMMARY E ---
Discharge Summary NAME: ANGELIQUE WHEELER : 1950 AGE: 68Y ADMITTED: 02/17/2019 DISCHARGED: 02/25/2019 FINAL DIAGNOSES INCLUDES: 1. Acute blood loss anemia. 2. Upper GI bleed, most likely small bowel etiology. 3. Helicobacter pylori gastritis. 4. Hypertension. 5. Diabetes mellitus type 2. 6. Gastroesophageal reflux disease. CODE STATUS: FULL CODE. PRIMARY CARE PROVIDER: Mane Meier. CONSULTING SURGICALIST: Dameon Rivero MD DISCHARGE MEDICATIONS INCLUDE: 1. Protonix 40 mg p.o. b.i.d., 26 tablets with 0 refills. 2. Clarithromycin 500 mg p.o. b.i.d., 26 tablets, 0 refills. 3. Amoxil 1 gram p.o. q.12 hours x13 days. 4. Lisinopril 2.5 mg p.o. daily. 5. Fenofibrate 160 mg p.o. daily, hold until antibiotic treatment is complete. 6. Lipitor 80 mg p.o. q. hour of sleep, hold until antibiotic treatment is complete. 7. Multivitamin 1 tablet p.o. daily. 8. Glucophage 500 mg p.o. daily with meals. 9. Glipizide 5 mg p.o. b.i.d. 10. Vitamin D2 50,000 units p.o. weekly. DIET: Diabetic as tolerated. ACTIVITY: As tolerated. CONDITION: Good. DIAGNOSTICS: Lab values are as follows: Hematology obtained on 02/25/2019: WBCs are 6.7, hemoglobin 7.8, hematocrit is 22.5, platelet count is 332,000. Coagulation obtained on 02/19/2019: PT is 30.5, INR is 0.98. Chemistry obtained on 02/25/2019: Sodium is 136, potassium 3.7 chloride 103, carbon dioxide 27, BUN 16, creatinine 0.74, glucose 181, calcium is 9.3, magnesium is 1.5, bilirubin 0.2, AST 27, ALT is 28, alk phos 67. CK 59, CK-MB is 0.65. Troponin 0.012. Total protein 6.2, albumin 3.5. Urinalysis obtained on 02/17/2019: Color yellow. Appearance slightly cloudy. The pH is 5.0, specific gravity 1.020, protein negative, glucose 500, ketones negative, occult blood negative, nitrite negative, urobilinogen negative, leukocyte esterase negative, WBCs 2, RBCs 1, epithelial squamous cells 2, mucus rare, ascorbic acid is negative. Other body source obtained on 02/22/2019: Stool for occult blood is positive. Venous Doppler study obtained on 02/18/2019 reveals no evidence of DVT or SVT in the right leg. Barium enema obtained on 02/19/2019 reveals normal air barium contrast. Pathology: Gastric biopsy obtained on 02/18/2019 reveals positive for Helicobacter pylori with severe active chronic gastritis. Colonic biopsy obtained on 02/19/2019 revealed a hyperplastic polyp. EKG obtained on 02/17/2019 reveals sinus tachycardia. PHYSICAL EXAMINATION: GENERAL: On examination, patient is a well-developed, well-nourished 68-year-old female who is awake, alert and oriented to person, place, time and situation. She is verbal and conversational, in no acute distress. VITAL SIGNS: Temperature is 98.2, pulse 73, respirations 16, blood pressure 102/53, oxygen saturation is 99% on room air. SKIN: Warm and dry. No rash. Not diaphoretic. HEENT: Pupils are reactive. Conjunctivae are pink. No evidence of JVP. CVS: Heart is regular. No murmurs or rubs. CHEST: Clear, symmetrical, unlabored. ABDOMEN: Soft, nontender. EXTREMITIES: No clubbing, cyanosis or edema. PSYCHIATRIC: Appropriate affect, pleasant mood. HISTORY OF PRESENT ILLNESS: The patient is a 68-year-old female with a past medical history of diabetes mellitus type 2, chronic back pain and known duodenal ulcer back in 2014. The patient presented to the emergency department with a chief complaint of dizziness, as well as episodes of melena. The patient stated she had been having worsening of her chronic lower back pain and had been taking ibuprofen, up to 6 tablets a day for a couple of days prior to presentation. The patient states she had a known ulcer and was told not to take the NSAIDs, but due to the worsening of the pain, she had no choice, she felt, but to take ibuprofen. The patient had had black tarry stools for 2 days, approximately 4 episodes a day. The patient denied any vomiting or hematemesis. Denied any abdominal pain. The patient was awakened in the morning, feeling dizzy and lightheaded, and was having heart palpitations. While in the emergency department, the patient was found to have a hemoglobin of 7. Her baseline prior to that was 11.8 and the patient was referred to the hospitalist for admission and management. HOSPITAL COURSE: [place] [facility] [place] patient was placed on IV PPI therapy. The patient's hemoglobin was monitored and she did dip down to 7. The patient did require 2 separate blood transfusions. The patient's hemoglobin peaked at 8.9, but settled back at 7.5. The patient has not received any further transfusion and her hemoglobin has trended up to 7.8. The patient denies any other episodes of melena, hematochezia, coffeeground emesis or hematemesis. The patient was seen and evaluated by the Surgery service and underwent an EGD and colonoscopy. The patient had no area of stigmata and therefore the patient has been referred for capsule endoscopy with Dr. Rincon. This had been arranged prior to my care of the patient. The patient's pathology from her EGD was conclusive of Helicobacter pylori, and therefore the patient will be treated for a total of 14 days. The patient has tolerated her first 2 doses without issue. DISCHARGE PLAN: The patient will follow up with Dr. Rincon as scheduled on Monday for small bowel capsule. The patient is to follow with a primary care provider within 1 to 2 weeks for hospital followup. Time spent on this discharge, including assessment, plan, physical examination, patient education and review of records, as well as family meeting, was 25 minutes. DICTATING PHYSICIAN: BROOKLYN CABRERA NP [id number] PHY#: [id number] ID: [id number] JOB#: [id number] ACCT: [id number] cc:Bk BRIGHT NP > MTDD
== END 2019-02-25 11:09 | disposition home or self-care (01) | DRG 812 ==
LOC: ER 13:13 → EH 17:40 → 3W 23:00 → 2N 02-24 09:25
PROVIDERS: ADMIT Internal Medicine; ATTEND Internal Medicine
PROC: 30233N1 Transfusion of Nonautologous Red Blood Cells into Peripheral Vein, Percutaneous Approach (ICD-10-PCS; principal; 2019-02-17)
PROC: 0DD78ZX Extraction of Stomach, Pylorus, Via Natural or Artificial Opening Endoscopic, Diagnostic (ICD-10-PCS; 2019-02-18)
PROC: 30233K1 Transfusion of Nonautologous Frozen Plasma into Peripheral Vein, Percutaneous Approach (ICD-10-PCS; 2019-02-18)
PROC: 30233N1 Transfusion of Nonautologous Red Blood Cells into Peripheral Vein, Percutaneous Approach (ICD-10-PCS; 2019-02-18)
PROC: 0DBN8ZX Excision of Sigmoid Colon, Via Natural or Artificial Opening Endoscopic, Diagnostic (ICD-10-PCS; 2019-02-19)
PROC: 30233N1 Transfusion of Nonautologous Red Blood Cells into Peripheral Vein, Percutaneous Approach (ICD-10-PCS; 2019-02-20)
PROC: 30233N1 Transfusion of Nonautologous Red Blood Cells into Peripheral Vein, Percutaneous Approach (ICD-10-PCS; 2019-02-21)
DX: D62 Acute posthemorrhagic anemia (principal); K92.2 Gastrointestinal hemorrhage, unspecified; K29.70 Gastritis, unspecified, without bleeding; K63.5 Polyp of colon; K21.9 Gastro-esophageal reflux disease without esophagitis; E78.00 Pure hypercholesterolemia, unspecified; I10 Essential (primary) hypertension; E11.8 Type 2 diabetes mellitus with unspecified complications; R42 Dizziness and giddiness; Z79.01 Long term (current) use of anticoagulants; Z79.84 Long term (current) use of oral hypoglycemic drugs; Z79.899 Other long term (current) drug therapy
CPT/HCPCS: 36415; 36430; 43239; 45380; 74280; 80048; 80053; 81001; 82272; 82550; 82553; 82962; 83735; 84484; 85025; 85027; 85610; 85730; 86850; 86900; 86901; 86920; 88305; 88342; 93005; 93010; 93971; 96365; 99291; J0171; J1200; J1610; J1815; J2250; J2310; J2405; J3010; J3475; J3490; J7030; P9016; P9017; S0164

== ENCOUNTER 2019-09-05 08:58 | Day surgery (SDC) | payer MEDICARE, MEDICAID ==
[~2019-09-05 08:58] MED LIST: KETOROLAC TROMETHAMINE 0.45% 4 DROP/0.4 ML DROPERETTE OS PRN
[2019-09-05] MEDS ORDERED: EPINEPHRINE INJ/PF 1 MG/1 ML AMPULE ONE (09:49)
[2019-09-05] MEDS ORDERED: LIDOCAINE 1%/PHENYLEPHRINE 1.5% 1 ML VIAL ONE (09:49)
[2019-09-05] MEDS ORDERED: TRYPAN BLUE 0.06 % OPH SOLN 0.5 ML DISP.SYRIN ONE (09:49)
[2019-09-05] MEDS ORDERED: CHONDR SU A NA/HYALUR INTRAOC KIT (SURGICARE) ONE (09:50)
[2019-09-05] MEDS: TROPICAMIDE 1% OPH SOLN 15 ML OS PRN ×3 (10:21→10:40)
[2019-09-05] MEDS: TETRACAINE HCL 0.5% OPH SOLN 4 ML OS PRN ×3 (10:21→10:55)
[2019-09-05] MEDS: BESIFLOXACIN HCL 0.6% OPH SUSP 5 ML BOTTLE OS PRN ×4 (10:22→11:16)
[2019-09-05] MEDS: CYCLOPENTOLATE 0.2%/PHENYLEPHRINE 1% OPH SOLN 2 ML OS PRN ×3 (10:22→10:40)
[2019-09-05] MEDS ORDERED: ONDANSETRON HCL INJ/PF 4 MG/2 ML SDV ONE (10:45)
[2019-09-05] MEDS ORDERED: FENTANYL CITRATE INJ/PF 100 MCG/2 ML AMPUL ONE (10:46)
[2019-09-05] MEDS ORDERED: MIDAZOLAM 2 MG/2 ML INJ ONE (10:46)
[2019-09-05] MEDS: DORZOLAMIDE HCL 2%/TIMOLOL MALEAT 0.5% OPH SOLN 10 ML OS PRN ×2 (11:16)
== END 2019-09-05 11:56 | disposition home or self-care (01) ==
LOC: SC 08:58
PROVIDERS: ATTEND Internal Medicine
DX: H25.89 Other age-related cataract (principal); E11.9 Type 2 diabetes mellitus without complications; Z79.84 Long term (current) use of oral hypoglycemic drugs
CPT/HCPCS: 66984; 82962; 00142; V2632; J2250; J3490 ×2; J0171; J3010; J2405; J2370; 142

== ENCOUNTER 2019-09-26 09:27 | Day surgery (SDC) | payer MEDICARE, MEDICAID ==
[~2019-09-26 09:27] MED LIST changes: +CHONDR SU A NA/HYALUR INTRAOC KIT (SURGICARE) ONE; +EPINEPHRINE INJ/PF 1 MG/1 ML AMPULE ONE
[2019-09-26] MEDS: BESIFLOXACIN HCL 0.6% OPH SUSP 5 ML BOTTLE OS PRN ×4 (10:35→11:29)
[2019-09-26] MEDS: TROPICAMIDE 1% OPH SOLN 15 ML OS PRN ×3 (10:35→10:55)
[2019-09-26] MEDS: TETRACAINE HCL 0.5% OPH SOLN 4 ML OS PRN ×3 (10:35→11:04)
[2019-09-26] MEDS: CYCLOPENTOLATE 0.2%/PHENYLEPHRINE 1% OPH SOLN 2 ML OS PRN ×3 (10:35→10:55)
[2019-09-26] MEDS ORDERED: FENTANYL CITRATE INJ/PF 100 MCG/2 ML AMPUL ONE (11:00)
[2019-09-26] MEDS ORDERED: MIDAZOLAM 2 MG/2 ML INJ ONE (11:00)
[2019-09-26] MEDS ORDERED: LIDOCAINE 1%/PHENYLEPHRINE 1.5% 1 ML VIAL ONE (11:25)
[2019-09-26] MEDS: DORZOLAMIDE HCL 2%/TIMOLOL MALEAT 0.5% OPH SOLN 10 ML OS PRN ×2 (11:29)
--- NOTE | 2019-09-27 07:09 | Operative Report ---
Operative Report-[facility] Operative Report: DATE OF SURGERY: 09/26/2019 PREOPERATIVE DIAGNOSIS: Cataract, right eye, Pupil Miosis POSTOPERATIVE DIAGNOSIS: Cataract, right eye, Pupil miosis OPERATION: Complex Cataract extraction with insertion of an IOL of the right eye and use of a maluygan ring due to pupil dilation of less than 4mm. Intraocular Lens Model: [22.3qk86og] Reason for surgery was difficulty with imbalance after having the previous eye operated on SURGEON: Trevor Coelho MD ANESTHESIA: Topical PROCEDURE: After obtaining appropriate consent, the patient's right eye was prepped and draped in a sterile fashion as well as the surgeon in the sterile manner and cataract surgery was started. First a paracentesis blade was used to make a side-port incision. Viscoelastic was used to inflate the anterior chamber. Next a 2.4 mm incision was made with a 2.4 mm blade, clear corneal temporarily. A continuous capsulorrhexis was made using a cystotome and Utrata forceps. Following this hydrodissection was carried out to make the lens fully loose and mobile and it was rotated freely. Following this, a divide and conquer technique was used to phacoemulsify the lens. The remaining cortex was removed with an irrigation/aspiration. Provisc was instilled into the capsular bag to inflate the bag. The intraocular lens was placed. The remaining viscoelastic material was removed with irrigation/aspiration. Following this, the incision was found to be watertight. Prior to making the capsulorhexis a maluygan ring was inserted due to poor pupillary dilation. This was removed at the end of the case. Besivance and Cosopt was instilled into the eye and a protective shield was placed over the eye. The patient was returned to the postoperative recovery in a stable condition.
== END 2019-09-26 12:15 | disposition home or self-care (01) ==
LOC: SC 09:27
PROVIDERS: ATTEND Internal Medicine
DX: H25.89 Other age-related cataract (principal); E11.9 Type 2 diabetes mellitus without complications; I10 Essential (primary) hypertension; Z96.1 Presence of intraocular lens
CPT/HCPCS: 66982; 82962; 00142; V2632; J2250; J3490 ×2; A9270; J0171; J3010; J2370; 142

== ENCOUNTER 2019-09-27 15:24 | Emergency (ER) | payer MEDICARE, MEDICAID ==
--- NOTE | 2019-09-27 15:47 | ER Document Report ---
ED Medical Screen (RME) - General Chief Complaint: Chest Pain Stated Complaint: CHEST PAIN Time Seen by Provider: 09/27/19 15:41 Primary Care Provider: ROHAN ROPER PA-C [Primary Care Provider] - Follow up as needed Mode of Arrival: Ambulatory Information source: Patient Notes: 68-year-old female presented to ED for complaint of chest pain x1 to 2 hours. She states it is achy and hurts worse when she moves. She states she has not injured herself. She does have a history of high cholesterol high blood pressure and diabetes. She did recently have her eye surgery and she had tonsils removed and a bilateral tubal ligation. She states she does not drink smoke or use any drugs. She is alert oriented respirations regular nonlabored speaking in full sentences walks with even steady gait. I have greeted and performed a rapid initial assessment of this patient. A comprehensive ED assessment and evaluation of the patient, analysis of test results and completion of medical decision making process will be conducted by an additional ED providers. TRAVEL OUTSIDE OF THE [place] IN LAST 30 DAYS: No - Related Data Allergies/Adverse Reactions: aspirin [Aspirin] Adverse Reaction (Verified 09/20/19 11:14) Home Medications: glipizide. lisinopril. jordan glitazone. ezetimibe. metformin. prolensa. prenisolone. moxifloxacin Past Medical History - Social History Frequency of alcohol use: None Drug Abuse: None - Past Medical History Cardiac Medical History: Reports: Hx Hypercholesterolemia, Hx Hypertension Denies: Hx Coronary Artery Disease, Hx Heart Attack Pulmonary Medical History: Reports: Hx Bronchitis Denies: Hx Asthma, Hx COPD, Hx Pneumonia, Hx Tuberculosis Neurological Medical History: Denies: Hx Cerebrovascular Accident, Hx Seizures Endocrine Medical History: Reports: Hx Diabetes Mellitus Type 2 Renal/ Medical History: Denies: Hx Peritoneal Dialysis GI Medical History: Reports: Hx Gastroesophageal Reflux Disease, Hx Ulcer. Denies: Hx Hiatal Hernia Musculoskeltal Medical History: Reports Hx Arthritis Psychiatric Medical History: Reports: Hx Depression Past Surgical History: Reports: Hx Section, Hx Tonsillectomy, Hx Tubal Ligation, Other - EGD where gastric ulcers were identified.. Denies: Hx Hysterectomy, Hx Mastectomy, Hx Open Heart Surgery, Hx Pacemaker - Immunizations Hx Diphtheria, Pertussis, Tetanus Vaccination: Yes - UTD Physical Exam - Vital signs Vitals: Temp Pulse Resp BP Pulse Ox 98.3 F 87 20 150/70 H 100 09/27/19 15:42 09/27/19 15:42 09/27/19 15:42 09/27/19 15:42 09/27/19 15:42 Course - Vital Signs Vital signs: Temp Pulse Resp BP Pulse Ox 98.3 F 87 20 150/70 H 100 09/27/19 15:42 09/27/19 15:42 09/27/19 15:42 09/27/19 15:42 09/27/19 15:42 Doctor's Discharge - Discharge Referrals: ROHAN ROPER PA-C [Primary Care Provider] - Follow up as needed
[2019-09-27 16:24] LABS: ABSOLUTE BASOPHILS # (AUTO) 0.1 10^3/uL (0.0-0.2); ABSOLUTE EOSINOPHILS # (AUTO) 0.1 10^3/uL (0.0-0.6); ABSOLUTE LYMPHOCYTES (AUTO) 2.8 10^3/uL (0.5-4.7); ABSOLUTE MONOCYTES (AUTO) 0.5 10^3/uL (0.1-1.4); ABSOLUTE NEUT (AUTO) 2.5 10^3/uL (1.7-8.2); BASOPHILS % (AUTO) 0.9 % (0-2); EOSINOPHILS % (AUTO) 2.2 % (0-6); HEMATOCRIT 35.2 % (36.0-47.0); HEMOGLOBIN 11.9 g/dL (12.0-15.5); LYMPHOCYTES % (AUTO) 47.1 % (13-45); MEAN CORPUSCULAR HGB CONC 33.9 g/dL (32.0-36.0); MEAN CORPUSCULAR VOLUME 91 fl (80-97); PLATELET COUNT 291 10^3/uL (150-450); RED BLOOD COUNT 3.85 10^6/uL (3.72-5.28); RED CELL DISTRIBUTION WIDTH 12.8 % (11.5-14.0); SEGMENTED NEUTROPHILS % (AUTO) 41.8 % (42-78); TOTAL CELLS COUNTED % (AUTO) 100 %; WHITE BLOOD COUNT 5.9 10^3/uL (4.0-10.5)
[2019-09-27 16:34] LABS: ALBUMIN 4.6 g/dL (3.5-5.0); ALKALINE PHOSPHATASE 102 U/L (38-126); ANION GAP 10 (5-19); ASPARTATE AMINO TRANSFERASE 32 U/L (14-36); BILIRUBIN,DIRECT 0.1 mg/dL (0.0-0.4); BILIRUBIN,TOTAL 0.3 mg/dL (0.2-1.3); BLOOD UREA NITROGEN 9 mg/dL (7-20); CALCIUM 9.9 mg/dL (8.4-10.2); CARBON DIOXIDE 29 mmol/L (22-30); CHLORIDE 100 mmol/L (98-107); GLUCOSE 130 mg/dL (75-110); POTASSIUM 4.2 mmol/L (3.6-5.0)
--- NOTE | 2019-09-27 17:50 | RADIOLOGY REPORT (SQ) ---
EXAM DESCRIPTION: CHEST 2 VIEWS COMPLETED DATE/TIME: 09/27/2019 5:40 pm REASON FOR STUDY: Chest pain COMPARISON: Chest radiographs 11/10/2017 EXAM PARAMETERS: NUMBER OF VIEWS: two views TECHNIQUE: Digital Frontal and Lateral radiographic views of the chest acquired. RADIATION DOSE: NA LIMITATIONS: none FINDINGS: LUNGS AND PLEURA: No opacities, masses or pneumothorax. No pleural effusion. MEDIASTINUM AND HILAR STRUCTURES: No masses or contour abnormalities. HEART AND VASCULAR STRUCTURES: Heart normal size. No evidence for failure. BONES: No acute findings. HARDWARE: None in the chest. OTHER: No other significant finding. IMPRESSION: NO ACUTE RADIOGRAPHIC FINDING IN THE CHEST. TECHNICAL DOCUMENTATION: JOB ID: [id number] [employer]- All Rights Reserved Reading location - IP/workstation name: [email or web address]
[2019-09-27 20:26] LABS: APPEARANCE,URINE CLEAR; BILIRUBIN,URINE NEGATIVE (NEGATIVE); COLOR,URINE STRAW; GLUCOSE, URINE NEGATIVE (NEGATIVE); KETONES,URINE NEGATIVE (NEGATIVE); LEUKOCYTE ESTERASE,URINE NEGATIVE (NEGATIVE); NITRITE,URINE NEGATIVE (NEGATIVE); PROTEIN,URINE NEGATIVE (NEGATIVE); URINE SPECIFIC GRAVITY 1.006; UROBILINOGEN,URINE NEGATIVE mg/dL (<2.0)
--- NOTE | 2019-09-27 20:32 | ER Document Report ---
ED Cardiac - General Chief Complaint: Chest Pain Stated Complaint: CHEST PAIN Time Seen by Provider: 09/27/19 15:41 Primary Care Provider: ROHAN ROPER PA-C [Primary Care Provider] - Follow up as needed PAYAL BELLA MD [ACTIVE STAFF] - Follow up in 3-5 days Mode of Arrival: Ambulatory Notes: 68-year-old female with past medical history of hypertension, hyperlipidemia, diabetes presents with central chest pain that started approximately 1 to 2 hours prior to arrival. Radiated straight to back. Describes pain as a pressure. Denies any tearing sensation or sharp pain. States it was worse with exertion, nothing relieves it. Denies associated dyspnea, nausea, vomiting, diz ziness, fever, syncope, chills, or coughing. States currently she is having no pain. Denies any history of TX or stents. Denies any family history of TX. States she had a stress test last year which was normal, denies ever having a cath. Pt is also concerned about urine test due to having dark urine. Denies hematuria or dysuria. TRAVEL OUTSIDE OF THE [place] IN LAST 30 DAYS: No - Related Data Allergies/Adverse Reactions: aspirin [Aspirin] Adverse Reaction (Verified 09/20/19 11:14) Home Medications: glipizide. lisinopril. jordan glitazone. ezetimibe. metformin. prolensa. prenisolone. moxifloxacin Past Medical History - General Information source: Patient - Social History Smoking Status: Never Smoker Frequency of alcohol use: None Drug Abuse: None Family History: Reviewed & Not Pertinent Patient has suicidal ideation: No Patient has homicidal ideation: No - Past Medical History Cardiac Medical History: Reports: Hx Hypercholesterolemia, Hx Hypertension Denies: Hx Coronary Artery Disease, Hx Heart Attack Pulmonary Medical History: Reports: Hx Bronchitis Denies: Hx Asthma, Hx COPD, Hx Pneumonia, Hx Tuberculosis Neurological Medical History: Denies: Hx Cerebrovascular Accident, Hx Seizures Endocrine Medical History: Reports: Hx Diabetes Mellitus Type 2 Renal/ Medical History: Denies: Hx Peritoneal Dialysis GI Medical History: Reports: Hx Gastroesophageal Reflux Disease, Hx Ulcer. D enies: Hx Hiatal Hernia Musculoskeletal Medical History: Reports Hx Arthritis Psychiatric Medical History: Reports: Hx Depression Past Surgical History: Reports: Hx Section, Hx Tonsillectomy, Hx Tubal Ligation, Other - EGD where gastric ulcers were identified.. Denies: Hx Hysterectomy, Hx Mastectomy, Hx Open Heart Surgery, Hx Pacemaker - Immunizations Hx Diphtheria, Pertussis, Tetanus Vaccination: Yes - UTD Hx Pneumococcal Vaccination: 07/21/14 Review of Systems - Review of Systems Notes: Constitutional: Negative for fever. HENT: Negative for sore throat. Eyes: Negative for visual changes. Cardiovascular: Positive for chest pain. Respiratory: Negative for shortness of breath. Gastrointestinal: Negative for abdominal pain, vomiting or diarrhea. Genitourinary: Negative for dysuria. Musculoskeletal: Positive for back pain. Skin: Negative for rash. Neurological: Negative for headaches, weakness or numbness. 10 point ROS negative except as marked above and in HPI. Physical Exam - Vital signs Vitals: Temp Pulse Resp BP Pulse Ox 98.3 F 87 20 150/70 H 100 09/27/19 15:42 09/27/19 15:42 09/27/19 15:42 09/27/19 15:42 09/27/19 15:42 - Notes Notes: GENERAL: Well-appearing, well-nourished and in no acute distress. HEAD: Atraumatic, normocephalic. EYES: Patient wearing glasses due to cataract surgery yesterday. NECK: Normal range of motion, supple without lymphadenopathy or JVD. LUNGS: Breath sounds clear to auscultation bilaterally and equal. No wheezes rales or rhonchi. HEART: Regular rate and rhythm without murmurs, rubs or gallops. ABDOMEN: Soft, nontender, normoactive bowel sounds. No guarding, no rebound. No masses appreciated. EXTREMITIES: Normal range of motion, no pitting or edema. No clubbing or cyanosis. NEUROLOGICAL: Cranial nerves II through XII grossly intact. Normal speech, normal gait. PSYCH: Normal mood, normal affect. SKIN: Warm, Dry, normal turgor, no rashes or lesions noted. Course - Re-evaluation Re-evalutation: 09/27/19 Presentation of chest pain in an otherwise well appearing patient. EKG without ST elevations or depressions, and negative initial troponin. HEART score 4. PE also seems unlikely given clinical history, absence of tachycardia or dyspnea. CXR without evidence of pneumothorax or pneumonia. No widened mediastinum. Aortic dissection also seems unlikely given history, symmetric pulses, CXR, and vitals. HEART Score: 4 09/27/19 20:38 Discussed with attending, Dr. Milligan, who states to order a 2nd troponin and if negative can discharge pt with outpatient follow up with PCP. 09/27/19 22:01 2nd troponin negative. Discussed all results with pt and pt's family at bedside. Referral to be given to PCP and professional system administrator for further follow up. Return precautions discussed/given. All questions/concerns addressed prior to discharge. - Vital Signs Vital signs: Temp Pulse Resp BP Pulse Ox 98.3 F 87 20 126/72 H 97 09/27/19 15:42 09/27/19 15:42 09/27/19 19:01 09/27/19 19:01 09/27/19 19:01 - Laboratory Result Diagrams: 09/27/19 15:59 09/27/19 15:59 Laboratory results interpreted by me: 09/27/19 09/27/19 15:59 15:59 Hgb 11.9 L Hct 35.2 L Lymph % (Auto) 47.1 H Seg Neutrophils % 41.8 L Glucose 130 H Magnesium 1.4 L Discharge - Discharge Clinical Impression: Chest pain Qualifiers: Chest pain type: unspecified Qualified Code(s): R07.9 - Chest pain, unspecified Condition: Stable Disposition: HOME, SELF-CARE Instructions: Chest Pain of Unclear Cause ([facility]) Additional Instructions: You were seen today for chest pain. The exact cause of your pain is unclear. However, based on your cardiac enzyme testing, chest x-ray, and EKG it does not appear that it is from an immediately life-threatening cause at this time. Alth ough your testing here is normal is critical that you follow-up with your primary care physician/professional system administrator that you were referred to for continued evaluation of this chest pain and possible stress testing. Please return to emergency department immediately if you have worsening of your chest pain, shortness of breath, vomiting, become unable to exert yourself due to pain or difficulty breathing, you pass out, or have any pain that radiates into your arms, jaw, or back. Please also return if you have any additional symptoms that are concerning to you. Referrals: ROHAN ROPER PA-C [Primary Care Provider] - Follow up as needed PAYAL BELLA MD [ACTIVE STAFF] - Follow up in 3-5 days
[2019-09-27 22:51] VITALS: BP 134/70
--- NOTE | 2019-09-28 22:04 | EKG REPORT ---
SEVERITY:- NORMAL ECG - SINUS RHYTHM : Confirmed by: Teodora Wilson 28-Sep-2019 22:03:29
== END 2019-09-27 22:50 | disposition home or self-care (01) ==
LOC: ER 15:24
DX: R07.9 Chest pain, unspecified (principal); M54.9 Dorsalgia, unspecified; I10 Essential (primary) hypertension; E11.9 Type 2 diabetes mellitus without complications; Z79.899 Other long term (current) drug therapy
CPT/HCPCS: 36415; 71046; 80053; 81001; 82962; 83735; 84484; 85025; 93005; 93010; 99285

== ENCOUNTER 2019-09-30 19:29 | Emergency (ER) | payer MEDICARE, MEDICAID ==
[2019-09-30] MEDS ORDERED: IBUPROFEN 600 MG TABLET PO ONE (20:07)
[2019-09-30] MEDS ORDERED: ACETAMINOPHEN 325 MG TABLET PO ONE (20:07)
--- NOTE | 2019-09-30 20:07 | ER Document Report ---
HPI - HPI Time Seen by Provider: 09/30/19 20:02 Pain Level: 5 Notes: Patient is a 68-year-old female presenting to the emergency department with 2- day history of fever, cough, congestion and runny nose. Patient also reports severe sore throat. Patient states she tried going to her primary care provider today she does get recurrent upper respiratory infections. She states that her primary care provider's office did not have any appointments available so she decided to come to the emergency department. - REPRODUCTIVE Reproductive: DENIES: : Past Medical History - General Information source: Patient - Social History Smoking Status: Never Smoker Chew tobacco use (# tins/day): No Frequency of alcohol use: None Drug Abuse: None Family History: Reviewed & Not Pertinent Patient has suicidal ideation: No Patient has homicidal ideation: No - Past Medical History Cardiac Medical History: Reports: Hx Hypercholesterolemia, Hx Hypertension Denies: Hx Coronary Artery Disease, Hx Heart Attack Pulmonary Medical History: Reports: Hx Bronchitis Denies: Hx Asthma, Hx COPD, Hx Pneumonia, Hx Tuberculosis Neurological Medical History: Denies: Hx Cerebrovascular Accident, Hx Seizures Endocrine Medical History: Reports: Hx Diabetes Mellitus Type 2 Renal/ Medical History: Denies: Hx Peritoneal Dialysis GI Medical History: Reports: Hx Gastroesophageal Reflux Disease, Hx Ulcer. Denies: Hx Hiatal Hernia Musculoskeletal Medical History: Reports Hx Arthritis Psychiatric Medical History: Reports: Hx Depression Past Surgical History: Reports: Hx Section, Hx Tonsillectomy, Hx Tubal Ligation, Other - EGD where gastric ulcers were identified.. Denies: Hx Hysterectomy, Hx Mastectomy, Hx Open Heart Surgery, Hx Pacemaker - Immunizations Hx Diphtheria, Pertussis, Tetanus Vaccination: Yes - UTD Hx Pneumococcal Vaccination: 07/21/14 Vertical Provider Document - CONSTITUTIONAL Notes: PHYSICAL EXAMINATION: GENERAL: Well-appearing, well-nourished and in no acute distress. HEAD: Atraumatic, normocephalic. EYES: Pupils equal round and reactive to light, extraocular movements intact, conjunctiva are normal. ENT: Nares with clear rhinorrhea, oropharynx clear without exudates. Moist mucous membranes. NECK: Normal range of motion, supple without lymphadenopathy LUNGS: Breath sounds clear to auscultation bilaterally and equal. No wheezes rales or rhonchi. Congested cough. HEART: Regular rate and rhythm without murmurs ABDOMEN: Soft, nontender, nondistended abdomen. No guarding, no rebound. No masses appreciated. Female : deferred Musculoskeletal: Normal range of motion, no pitting or edema. No cyanosis. NEUROLOGICAL: Cranial nerves grossly intact. Normal speech, normal gait. Normal sensory, motor exams PSYCH: Normal mood, normal affect. SKIN: Warm, Dry, normal turgor, no rashes or lesions noted. - INFECTION CONTROL TRAVEL OUTSIDE OF THE [place] IN LAST 30 DAYS: No Course - Re-evaluation Re-evalutation: Chest x-ray was negative for any acute findings as outlined below. Patient appears well, nontoxic she does have a fever in the emergency department however this is expected with her illness. Her physical examination is reassuring. Patient wishes to go home, prescriptions will be provided, patient will have close follow-up with her primary care and return to the emergency department if worsening. The patient's emergency department workup and current diagnosis were explained to the patient and or family. Follow-up instructions were provided. Medications if prescribed were discussed. Instructions for when to return to the emergency department including specific worrisome symptoms were discussed with the patient and/or family. - Vital Signs Vital signs: Temp Pulse Resp BP Pulse Ox 100.8 F H 111 H 18 140/79 H 96 09/30/19 19:38 09/30/19 19:38 09/30/19 19:38 09/30/19 19:38 09/30/19 19:38 Discharge - Discharge Clinical Impression: Upper respiratory infection Qualifiers: URI type: unspecified URI Qualified Code(s): J06.9 - Acute upper respiratory infection, unspecified Fever Qualifiers: Fever type: unspecified Qualified Code(s): R50.9 - Fever, unspecified Condition: Stable Disposition: HOME, SELF-CARE Instructions: Sore Throat ([facility]), Upper Respiratory Illness ([facility]) Additional Instructions: Please take medications as prescribed. Finish antibiotics in their entirety. Drink plenty of fluids. Get plenty of rest. Please take Tylenol 650 mg every 4 hours for pain/fever and body aches. Follow-up with your primary care provider if not improving over the next 2 to 3 days. Prescriptions: Codeine Phosphate/Guaifenesin [Cheratussin AC Syrup] 10 ml PO QHS #120 ml Benzonatate [Tessalon Perles 100 mg Capsule] 1 - 2 tab PO Q8HP PRN #30 capsule PRN Reason: Azithromycin 250 mg PO DAILY #4 tablet Prednisone [Deltasone 20 mg Tablet] 3 tab PO DAILY 5 Days #15 tablet Referrals: ROHAN ROPER PA-C [Primary Care Provider] - Follow up as needed
[2019-09-30] MEDS ORDERED: BENZONATATE 100 MG CAPSULE PO ONE (20:08)
--- NOTE | 2019-09-30 20:40 | RADIOLOGY REPORT (SQ) ---
XR CHEST 2 VIEWS CLINICAL STATEMENT: cough, fever COMPARISON: 09/27/2019 FINDINGS: Cardiomediastinal silhouette is within normal limits. There is no focal lung consolidation or pleural effusion. No evidence of pulmonary edema or pneumothorax. IMPRESSION: No acute cardiopulmonary disease.
[2019-09-30 21:09] LABS: A TYPE INFLUENZA AG NEGATIVE (NEGATIVE); B INFLUENZA AG NEGATIVE (NEGATIVE)
[2019-09-30] MEDS ORDERED: AZITHROMYCIN 250 MG TABLET PO ONE (21:50)
[2019-09-30 22:04] VITALS: BP 136/67
== END 2019-09-30 22:00 | disposition home or self-care (01) ==
LOC: ER 19:29
DX: J06.9 Acute upper respiratory infection, unspecified (principal); R50.9 Fever, unspecified; R05 Cough; R09.81 Nasal congestion; R09.89 Other specified symptoms and signs involving the circulatory and respiratory systems; J02.9 Acute pharyngitis, unspecified; I10 Essential (primary) hypertension; E11.9 Type 2 diabetes mellitus without complications
CPT/HCPCS: 99283; 87804; 71046; A9270 ×3

== ENCOUNTER 2019-11-25 00:05 | Emergency (ER) | payer MEDICARE, MEDICAID ==
[2019-11-25 00:46] LABS: ABSOLUTE BASOPHILS # (AUTO) 0.1 10^3/uL (0.0-0.2); ABSOLUTE EOSINOPHILS # (AUTO) 0.1 10^3/uL (0.0-0.6); ABSOLUTE MONOCYTES (AUTO) 0.6 10^3/uL (0.1-1.4); ABSOLUTE NEUT (AUTO) 3.1 10^3/uL (1.7-8.2); EOSINOPHILS % (AUTO) 1.8 % (0-6); HEMATOCRIT 37.1 % (36.0-47.0); HEMOGLOBIN 12.7 g/dL (12.0-15.5); LYMPHOCYTES % (AUTO) 44.1 % (13-45); MEAN CORPUSCULAR HGB CONC 34.3 g/dL (32.0-36.0); MEAN CORPUSCULAR VOLUME 91 fl (80-97); MONOCYTES % (AUTO) 8.3 % (3-13); PLATELET COUNT 319 10^3/uL (150-450); RED BLOOD COUNT 4.09 10^6/uL (3.72-5.28); RED CELL DISTRIBUTION WIDTH 13.3 % (11.5-14.0); SEGMENTED NEUTROPHILS % (AUTO) 44.8 % (42-78); TOTAL CELLS COUNTED % (AUTO) 100 %; WHITE BLOOD COUNT 6.9 10^3/uL (4.0-10.5)
[2019-11-25 01:04] LABS: ALBUMIN 4.5 g/dL (3.5-5.0); ALKALINE PHOSPHATASE 82 U/L (38-126); ANION GAP 12 (5-19); ASPARTATE AMINO TRANSFERASE 33 U/L (14-36); BILIRUBIN,DIRECT 0.3 mg/dL (0.0-0.4); BILIRUBIN,TOTAL 0.4 mg/dL (0.2-1.3); BLOOD UREA NITROGEN 17 mg/dL (7-20); CALCIUM 10.3 mg/dL (8.4-10.2); CARBON DIOXIDE 30 mmol/L (22-30); CHLORIDE 98 mmol/L (98-107); CREATINE KINASE 76 U/L (30-135); GLUCOSE 185 mg/dL (75-110); POTASSIUM 4.2 mmol/L (3.6-5.0); TOTAL PROTEIN 7.7 g/dL (6.3-8.2)
[2019-11-25 01:16] LABS: CREATINE KINASE MB 1.14 ng/mL (<4.55)
[2019-11-25 01:18] LABS: TROPONIN I < 0.012 ng/mL
--- NOTE | 2019-11-25 01:40 | RADIOLOGY REPORT (SQ) ---
EXAM DESCRIPTION: XR CHEST 2 VIEWS COMPLETED DATE/TME: 11/25/2019 00:00 CLINICAL HISTORY: 69 years, Female, CP COMPARISON: X-ray chest 09/30/2019 NUMBER OF VIEWS: TECHNIQUE: LIMITATIONS: None. FINDINGS: No evidence of pulmonary infiltrate or pleural effusion. The heart and mediastinum are unremarkable. Pulmonary vascularity appears normal. There are atherosclerotic changes and tortuosity of the thoracic aorta. There is no significant change, as compared with the prior x-ray(s). IMPRESSION: No acute finding. copyright 2010 [employer]- All Rights Reserved
[2019-11-25] MEDS ORDERED: MORPHINE SULFATE 10 MG/ML INJ IV ONE (03:04)
[2019-11-25] MEDS ORDERED: ONDANSETRON HCL INJ/PF 4 MG/2 ML SDV IV ONE (03:04)
--- NOTE | 2019-11-25 03:06 | ER Document Report ---
ED General - General Chief Complaint: Chest Pain Stated Complaint: CHEST PAIN Time Seen by Provider: 11/25/19 02:25 Primary Care Provider: ROHAN ROPER PA-C [Primary Care Provider] - Follow up in 3-5 days MELISSA NEIL MD [ACTIVE STAFF] - Follow up as needed Notes: Patient is a 69-year-old female that comes emergency department for chief complaint of left shoulder pain and pain over the left side of her chest. She states this is been going on for the past 2 to 3 days, is intermittent, sharp, at times very sharp. She states she has pain and difficulty lifting her left arm over her head and pain with moving her left arm generally. She denies numbness, injury, swelling, fever, difficulty breathing, cough, nausea or vomiting, abdominal pain, flank pain, dizziness. She states her left shoulder has been hurting for a while but her chest is more recent over the past couple of days. Past medical history of type 2 diabetes, hypertension, hyperlipidemia, former smoker. She denies family history of cardiac disease. She had a negative stress test 2 years ago. She lives at home with her family who is at bedside. TRAVEL OUTSIDE OF THE [place] IN LAST 30 DAYS: No - Related Data Allergies/Adverse Reactions: aspirin [Aspirin] Adverse Reaction (Verified 11/25/19 00:31) Past Medical History - General Information source: Patient - Social History Smoking Status: Never Smoker Frequency of alcohol use: None Drug Abuse: None Lives with: Family Family History: Reviewed & Not Pertinent Patient has suicidal ideation: No Patient has homicidal ideation: No - Past Medical History Cardiac Medical History: Reports: Hx Hypercholesterolemia, Hx Hypertension Denies: Hx Coronary Artery Disease, Hx Heart Attack Pulmonary Medical History: Reports: Hx Bronchitis Denies: Hx Asthma, Hx COPD, Hx Pneumonia, Hx Tuberculosis Neurological Medical History: Denies: Hx Cerebrovascular Accident, Hx Seizures Endocrine Medical History: Reports: Hx Diabetes Mellitus Type 2 Renal/ Medical History: Denies: Hx Peritoneal Dialysis GI Medical History: Reports: Hx Gastroesophageal Reflux Disease, Hx Ulcer. Denies: Hx Hiatal Hernia Musculoskeletal Medical History: Reports Hx Arthritis Psychiatric Medical History: Reports: Hx Depression Past Surgical History: Reports: Hx Section, Hx Tonsillectomy, Hx Tubal Ligation, Other - EGD where gastric ulcers were identified.. Denies: Hx Hysterectomy, Hx Mastectomy, Hx Open Heart Surgery, Hx Pacemaker - Immunizations Hx Diphtheria, Pertussis, Tetanus Vaccination: Yes - UTD Hx Pneumococcal Vaccination: 07/21/14 Review of Systems - Review of Systems Constitutional: No symptoms reported EENT: No symptoms reported Cardiovascular: See HPI Respiratory: No symptoms reported Gastrointestinal: No symptoms reported Genitourinary: No symptoms reported Female Genitourinary: No symptoms reported Musculoskeletal: See HPI Skin: No symptoms reported Hematologic/Lymphatic: No symptoms reported Neurological/Psychological: No symptoms reported Physical Exam - Vital signs Vitals: Temp Pulse Resp BP Pulse Ox 98.9 F 97 18 151/82 H 97 11/25/19 00:21 11/25/19 00:21 11/25/19 00:21 11/25/19 00:21 11/25/19 00:21 - Notes Notes: GENERAL: Alert, interacts well. No acute distress. HEAD: Normocephalic, atraumatic. EYES: Pupils equal, round, and reactive to light. Extraocular movements intact. ENT: Oral mucosa moist, tongue midline. Oropharynx unremarkable. Airway patent. NECK: Full range of motion. Supple. Trachea midline. LUNGS: Clear to auscultation bilaterally, no wheezes, rales, or rhonchi. No respiratory distress. HEART: Regular rate and rhythm. No murmur ABDOMEN: Soft, non-tender. Non-distended. Bowel sounds present in all 4 quadrants. GENITOURINARY: Deferred EXTREMITIES: Patient has difficulty lifting the left arm over her head because of pain, she has pain in the left shoulder, left chest, and left arm proximately with movement which is very reproducible. Pain with palpation over the left lateral pectoral muscle, supraspinatus area, and deltoid area. No severe pain, swelling, erythema. Normal chief librarian music department, normal distal neurovascular exam. No signs of trauma. BACK: no cervical, thoracic, lumbar midline tenderness. No saddle anesthesia, normal distal neurovascular exam. Moves all extremities in full range of motion. NEUROLOGICAL: Alert and oriented x3. Normal speech. Cranial nerves II through XII grossly intact. PSYCH: Normal affect, normal mood. SKIN: Warm, dry, normal turgor. No rashes or lesions noted. Course - Re-evaluation Re-evalutation: EKG unremarkable, troponin negative, patient very well-appearing. She has very reproducible symptoms with movement of the left arm, palpation over the left shoulder, deltoid, and the left pectoral muscles. Patient is also had this pain for a while, intermittently and recently somewhat worse. No injury. No neurovascular deficit, concerning swelling, or signs of infection. CBC, chemistry unremarkable. Chest x-ray and shoulder x-rays are unremarkable. We did repeat troponin and this was also negative. Patient does has risk factors including hypertension, diabetes, hyperlipidemia, and age, however she is requesting to go home. Because she has such a specific evaluation and obvious source of pain I feel is appropriate to have her discharged and follow-up with orthopedics if symptoms continue, I have a very low suspicion of ACS based on her evaluation. I did discuss this with patient and family. Discussed follow- up and return precautions. They state appreciation and agreement. - Vital Signs Vital signs: Temp Pulse Resp BP Pulse Ox 98.0 F 97 18 151/82 H 97 11/25/19 00:36 11/25/19 00:21 11/25/19 00:21 11/25/19 00:21 11/25/19 00:36 - Laboratory Result Diagrams: 11/25/19 00:25 11/25/19 00:25 Laboratory results interpreted by me: 11/25/19 00:25 Est GFR ( Amer) 53 L Est GFR (MDRD) Non-Af 44 L Glucose 185 H Calcium 10.3 H - EKG Interpretation by Me Additional EKG results interpreted by me: EKG sinus rhythm at a rate of 94, QTC 431, normal axis, no T wave inversions or ST segment changes in consecutive leads, machine reads as normal. Discharge - Discharge Clinical Impression: Left-sided chest pain, Chest wall pain Left shoulder pain Qualifiers: Chronicity: acute Qualified Code(s): M25.512 - Pain in left shoulder Condition: Stable Disposition: HOME, SELF-CARE Additional Instructions: Your evaluation is consistent with pain and probably impingement in your left shoulder, chest wall pain along her pectoral muscle, and pain along your deltoid muscle of the arm. The x-ray does not show any concerning finding. Your work- up does not show any concerning findings in regards to your lungs and heart. I recommend icing the area, Tylenol for pain, only take the provided stronger medication if you cannot sleep from the pain (if you do take miralax or a similar stool softener to avoid constipation). Consider low dose antiinflammatory over the counter such as naproxen or ibuprofen for the pain. If symptoms continue follow up with the Orthopedics referral for additional management (call for your appointment). Come back if you are worse including difficulty breathing, severe worsening pain, swelling, numbness, fever, passing out, or any other concerning or worsening symptoms. Referrals: ROHAN ROPER PA-C [Primary Care Provider] - Follow up in 3-5 days MELISSA NEIL MD [ACTIVE STAFF] - Follow up as needed
--- NOTE | 2019-11-25 04:21 | RADIOLOGY REPORT (SQ) ---
EXAM DESCRIPTION: XR SHOULDER 2 OR MORE VIEWS COMPLETED DATE/TME: 11/25/2019 03:03 CLINICAL HISTORY: 69 years Female, sharp pain, difficulty lifting shoulder COMPARISON: None. Findings: Bones, joints, and soft tissues of the LEFT XR SHOULDER 3 VIEWS appear intact. IMPRESSION: No acute findings.
[2019-11-25] MEDS ORDERED: HYDROCODONE/ACETAMINOPHEN 5-325 MG (6 TAB/ER DISP) PO PRN (04:44)
[2019-11-25 05:22] VITALS: BP 130/78
--- NOTE | 2019-11-25 06:45 | EKG REPORT ---
SEVERITY:- NORMAL ECG - SINUS RHYTHM : Confirmed by: Sherman Jane MD 25-Nov-2019 06:44:51
== END 2019-11-25 05:22 | disposition home or self-care (01) ==
LOC: ER 00:05
DX: R07.89 Other chest pain (principal); M25.512 Pain in left shoulder; M79.18 Myalgia, other site; I10 Essential (primary) hypertension; E11.9 Type 2 diabetes mellitus without complications
CPT/HCPCS: 93005; 99285; 96374; 96375; 36415; 82553; 82550; 85025; 80053; 84484; 71046; 73030; 93010; J2270; J2405; A9270